=== PATIENT | female | born 1975 | race Caucasian/White ===

== ENCOUNTER 2021-02-15 15:51 | Outpatient (CLI) | payer OTHER | END 2021-02-15 15:52 | disposition home or self-care (01) | LOC: COV 15:51 | PROVIDERS: ATTEND Family Medicine | DX: U07.1 COVID-19 (principal) ==

== ENCOUNTER 2021-02-18 21:39 | Emergency (ER) | payer MEDICAID ==
--- NOTE | 2021-02-18 22:43 | XRAY Report ---
PROCEDURE: Chest 1 View X-Ray INDICATIONS: covid + resp symptoms TECHNIQUE: One view of the chest was acquired. COMPARISON: 06/21/2018 FINDINGS: Surgical changes and devices: None. Lungs and pleura: No pleural effusions or pneumothorax. Lungs are clear. Mediastinum: Mediastinal contours appear normal. Heart size is normal. Bones and chest wall: No suspicious bony lesions. Overlying soft tissues appear unremarkable. IMPRESSION: No acute cardiopulmonary disease process. Reviewed by: Cheryl Samuels MD, PhD on 02/18/2021 10:42 PM PDT Approved by: Cheryl Samuels MD, PhD on 02/18/2021 10:42 PM PDT Station ID: [id number]
--- NOTE | 2021-02-18 23:03 | ED Physician Documentation ---
PD HPI CHEST PAIN - Stated complaint Stated Complaint: C+ CHEST TIGHT - Chief complaint Chief Complaint: Resp - History obtained from History obtained from: Patient - History of Present Illness Timing - onset: How many days ago (4-5) Timing - details: Gradual onset, Waxing and waning Quality: Pain Location: Substernal Improved by: Rest Worsened by: Exertion Associated symptoms: Shortness of air, Cough Similar symptoms before: Diagnosis (COVID) Recently seen: Clinic - Additional information Additional information: c/o several days of cough, dyspnea, chest tightness. dyspnea worse when lying down, supine. she has had chills/sweats and Tmax 101.7. On Friday (4 days ago), she took a home test for COVID which resulted positive, and she then went to walk-in/urgent care clinic on and had COVID test which was positive result. She has not been COVID vaccinated. Review of Systems Constitutional: reports: Fever, Chills, Myalgias, Fatigue, Sweats Cardiac: reports: Chest pain / pressure. denies: Palpitations Respiratory: reports: Dyspnea, Cough. 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 - Present Medications Home Medications: Ambulatory Orders Medication Instructions Recorded Confirmed Benzonatate [Tessalon Perle] 100 - 200 mg PO TID PRN #30 capsule 06/21/18 Doxycycline Hyclate 100 mg PO BID #20 capsule 06/21/18 Benzonatate [Tessalon] 200 mg PO TID PRN #20 02/18/21 - Allergies Allergies/Adverse Reactions: Allergies Allergy/AdvReac Type Severity Reaction Status Date / Time erythromycin base Allergy Intermediate hives/chest Verified 02/18/21 21:56 [Erythromycin Base] pain Penicillins Allergy Mild Hives Verified 02/18/21 21:56 - Social History Does the pt smoke?: No Smoking Status: Never smoker Does the pt drink ETOH?: Yes Does the pt have substance abuse?: No - Immunizations Immunizations are current?: Yes Immunizations: No immun - POLST Patient has POLST: No PD ED PE NORMAL - Vitals Vital signs reviewed: Yes - General General: Alert and oriented X 3, No acute distress, Well developed/nourished - HEENT HEENT: Moist mucous membranes - Neck Neck: Supple, no meningeal sign - Cardiac Cardiac: RRR, No murmur - Respiratory Respiratory: No respiratory distress, Clear bilaterally Results - Vitals Vitals: Oxygen O2 Source Room air - Rads (name of study) chest xray Radiology: Prelim report reviewed, See rad report PD MEDICAL DECISION MAKING - ED course Complexity details: reviewed results, re-evaluated patient, considered differential, d/w patient ED course: COVID positive by outpatient test (performed 02/15), presents due to increasing dyspnea and cough. CXR is unremarkable at this time, vital signs are stable including room air pulse ox. she speaks in full sentences, no respiratory distress although frequent dry cough during H+P and hoarse voice. prescribed tessalon perles. Departure - Departure Disposition: 01 Home, Self Care Clinical Impression: COVID-19 Condition: Good Instructions: ED Viral Syndrome, COVID-19 [facility] Prescriptions: Benzonatate [Tessalon] 200 mg PO TID PRN #20 PRN Reason: Cough Discharge Date/Time: 02/18/21 23:43
[2021-02-18] MEDS ORDERED: BENZONATATE 100 MG CAPSULE PO STA (23:25)
[2021-02-18 23:33] VITALS: BP 134/78
== END 2021-02-18 23:43 | disposition home or self-care (01) ==
LOC: ED 21:39
DX: U07.1 COVID-19 (principal)
CPT/HCPCS: 71045; 99283; 99284; A9270

== ENCOUNTER 2021-02-20 09:41 | Emergency (ER) | payer MEDICAID ==
--- NOTE | 2021-02-20 11:04 | ED Physician Documentation ---
PD HPI URI - Stated complaint Stated Complaint: C+ CALLED TO COME IN - Chief complaint Chief Complaint: General - History obtained from History obtained from: Patient - History of Present Illness Timing - onset: How many days ago (7) Timing duration: Days (7) Timing details: Gradual onset, Still present Associated symptoms: Fever, Chills, Sore throat, Dry cough, Dyspnea Contributing factors: Sick contact, Unimmunized. No: Travel, COPD / asthma Similar symptoms before: Has not had sx before Recently seen: Clinic (02/15/21 with positive COVID test.), Emergency Dept (last evening in ER for dyspnea and cough. Rx Tessalon. Had COVID test positive from 02/15/21. Told to return today for MAB therapy if wished that treatment. She is still having cough/dyspnea as well.) Review of Systems Constitutional: reports: Fever, Chills, Myalgias, Fatigue Nose: reports: Congestion Throat: reports: Sore throat Cardiac: reports: Chest pain / pressure. denies: Palpitations, Pedal edema Respiratory: reports: Dyspnea, Cough, Wheezing Skin: denies: Rash, Lesions Neurologic: reports: Generalized weakness, Headache. 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 - Present Medications Home Medications: Ambulatory Orders Medication Instructions Recorded Confirmed Doxycycline Hyclate 100 mg PO BID #20 capsule 06/21/18 02/20/21 Benzonatate [Tessalon] 200 mg PO TID PRN #20 02/18/21 02/20/21 Albuterol Sulf [Ventolin Hfa 3 - 4 puffs INH Q4HR PRN #1 inhaler 02/20/21 Inhaler] dexAMETHasone [Decadron] 4 mg PO DAILY #5 tablet 02/20/21 - Allergies Allergies/Adverse Reactions: Allergies Allergy/AdvReac Type Severity Reaction Status Date / Time erythromycin base Allergy Intermediate hives/chest Verified 02/20/21 10:20 [Erythromycin Base] pain Penicillins Allergy Mild Hives Verified 02/20/21 10:20 - Social History Does the pt smoke?: No Smoking Status: Never smoker Does the pt drink ETOH?: Yes Does the pt have substance abuse?: No - Immunizations Immunizations are current?: Yes Immunizations: No immun - POLST Patient has POLST: No PD ED PE NORMAL - Vitals Vital signs reviewed: Yes - General General: Alert and oriented X 3, No acute distress (repetitive coughing with prolonged exp phase. ), Well developed/nourished - HEENT HEENT: Moist mucous membranes, Pharynx benign - Neck Neck: Supple, no meningeal sign, No adenopathy - Cardiac Cardiac: RRR, No murmur - Respiratory Respiratory: No: Clear bilaterally (no coarse sounds but has scattered exp wheezing and prolonged exp phase. ) - Abdomen Abdomen: Soft, Non tender - Derm Derm: Normal color, Warm and dry, No rash - Extremities Extremities: No edema, No calf tenderness / cord - Neuro Neuro: Alert and oriented X 3, No motor deficit, Normal speech Results - Vitals Vitals: Vital Signs - 24 hr 02/20/21 02/20/21 02/20/21 10:15 11:54 11:59 Temperature 36.9 C 37.2 C Heart Rate 80 74 84 Respiratory 22 18 14 Rate Blood Pressure 109/78 116/65 O2 Saturation 98 94 02/20/21 13:19 Temperature Heart Rate 87 Respiratory 18 Rate Blood Pressure 113/61 O2 Saturation 94 Oxygen O2 Source Room air PD MEDICAL DECISION MAKING - ED course Complexity details: re-evaluated patient (improved moderately with Albuterol MDI. with her history of asthma, now with COVID, could benefit from Albuterol and steroids. Got MAB therapy infusion here without problems. ), considered differential (coughing and some wheezing. Not improved with Tessalon. Returned for MAB therapy. I called Pharmacy and they will enter the order. ), d/w patient Departure - Departure Disposition: 01 Home, Self Care Clinical Impression: Pneumonia due to COVID-19 virus Condition: Stable Record reviewed to determine appropriate education?: Yes Prescriptions: Albuterol Sulf [Ventolin Hfa Inhaler] 3 - 4 puffs INH Q4HR PRN #1 inhaler PRN Reason: Shortness Of Air/Wheezing dexAMETHasone [Decadron] 4 mg PO DAILY #5 tablet Comments: Stay well-hydrated. Tylenol if needed for fevers and pains. Use the albuterol inhaler 3 to 4 puffs 4 times a day to help with breathing and less wheezing. Decadron steroid for inflammation of the airways daily for the next several days. Continue with the previous Tessalon prescription for cough. Your oxygenation level is good at this point. Return to the ER if worsening trouble breathing. You will still feel ill over the next week. Discharge Date/Time: 02/20/21 13:56
[2021-02-20] MEDS ORDERED: DEXAMETHASONE 10 MG/ML VIAL IVP STA (11:28)
[2021-02-20] MEDS ORDERED: ALBUTEROL 1 PUFF INH STA (11:28)
[2021-02-20] MEDS ORDERED: BENZONATATE 100 MG CAPSULE PO STA (11:28)
[2021-02-20] MEDS ORDERED: diphenhydrAMINE ELIXIR 25 MG/10 ML UDC PO STA (11:28)
[2021-02-20] MEDS ORDERED: CASIRIVIMAB/IMDEVIMAB 10 ML in SODIUM CHLORIDE 0.9% 50 ML IV STA (11:42)
[2021-02-20 13:19] VITALS: BP 113/61
== END 2021-02-20 13:56 | disposition home or self-care (01) ==
LOC: ED 09:41
DX: U07.1 COVID-19 (principal); J12.82 Pneumonia due to coronavirus disease 2019; J45.909 Unspecified asthma, uncomplicated; I10 Essential (primary) hypertension; Z79.899 Other long term (current) drug therapy; Z23 Encounter for immunization
CPT/HCPCS: 94640; 94664; 96374; 99283; 99284; A9270; J7040; M0243; Q0244

== ENCOUNTER 2021-02-24 14:39 | Inpatient (IN) | payer MEDICAID ==
[2021-02-24] MEDS ORDERED: DEXAMETHASONE 10 MG/ML VIAL IVP STA (15:17)
--- NOTE | 2021-02-24 15:19 | ED Physician Documentation ---
PD HPI DYSPNEA - Stated complaint Stated Complaint: SOA,COUGH,C+ - History obtained from History obtained from: Patient - Additional information Additional information: Became symptomatic on the third and had a home Covid test that was positive. This was for fevers, cough, body aches and fatigue. Had a clinic Covid test done on the fifth which was also positive. She has been seen a couple of times since, on the eighth a chest x-ray was clear and she had a Mab infusion on the . She is actually overall feeling better from a perspective of the fatigue and body aches, but has been much more short of breath today. She has a loose cough. She was not immunized for Covid. 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 - Present Medications Home Medications: Ambulatory Orders Medication Instructions Recorded Confirmed Benzonatate [Tessalon] 200 mg PO TID PRN #20 02/18/21 02/24/21 Albuterol Sulf [Ventolin Hfa 3 - 4 puffs INH Q4HR PRN #1 inhaler 02/20/21 02/24/21 Inhaler] dexAMETHasone [Decadron] 4 mg PO DAILY #5 tablet 02/20/21 02/24/21 guaiFENesin/DEXTROMETHORPHAN 10 ml PO Q6H 02/24/21 02/24/21 [Robitussin Dm] - Allergies Allergies/Adverse Reactions: Allergies Allergy/AdvReac Type Severity Reaction Status Date / Time erythromycin base Allergy Intermediate hives/chest Verified 02/24/21 15:26 [Erythromycin Base] pain Penicillins Allergy Mild Hives Verified 02/24/21 15:26 - Social History Does the pt smoke?: No Smoking Status: Never smoker Does the pt drink ETOH?: Yes Does the pt have substance abuse?: No - Immunizations Immunizations are current?: Yes Immunizations: No immun - POLST Patient has POLST: No PD ED PE NORMAL - Vitals Vital signs reviewed: Yes - General General: Alert and oriented X 3, No acute distress - HEENT HEENT: PERRL, EOMI - Neck Neck: Supple, no meningeal sign, No bony TTP - Cardiac Cardiac: RRR, No murmur - Respiratory Respiratory: Other (Rhonchi at the bases with slightly increased I:E ratio but no wheezes., Frequent cough.) - Abdomen Abdomen: Non tender - Back Back: No CVA TTP, No spinal TTP - Derm Derm: Normal color, Warm and dry - Extremities Extremities: No edema, No calf tenderness / cord - Neuro Neuro: Alert and oriented X 3, Normal speech Results - Vitals Vitals: Vital Signs - 24 hr 02/24/21 02/24/21 02/24/21 15:23 15:39 16:46 Temperature 36.0 C L 36.6 C Heart Rate 84 81 75 Respiratory 26 H 22 20 Rate Blood Pressure 150/97 H 149/87 H 150/93 H O2 Saturation 88 L 93 96 02/24/21 02/24/21 02/24/21 16:55 17:27 18:07 Temperature 36.9 C 36.9 C Heart Rate 75 74 80 Respiratory 20 20 20 Rate Blood Pressure 150/93 H 149/92 H 133/113 H O2 Saturation 95 97 94 Oxygen O2 Source Nasal cannula Oxygen Flow Rate 2 - Labs Labs: Laboratory Tests 02/24/21 02/24/21 02/24/21 15:30 15:30 15:30 WBC 13.7 H RBC 3.96 L Hgb 12.5 Hct 37.8 MCV 95.5 MCH 31.6 H MCHC 33.1 RDW 15.4 H Plt Count 376 MPV 9.4 Neut # (Auto) 12.7 H Lymph # (Auto) 0.6 L [place] # (Auto) 0.3 Eos # (Auto) 0.0 Baso # (Auto) 0.0 Absolute Nucleated RBC 0.00 Nucleated RBC % 0.0 D-Dimer 594.7 H Sodium 140 Potassium 3.9 Chloride 103 Carbon Dioxide 26 Anion Gap 11.0 BUN 14 Creatinine 0.7 Estimated GFR (MDRD) 91 Glucose 104 H Calcium 8.9 Phosphorus 2.0 L Magnesium 1.9 Total Bilirubin 0.6 AST 187 H ALT 228 H Alkaline Phosphatase 257 H Total Protein 7.3 Albumin 3.1 L Globulin 4.2 Albumin/Globulin Ratio 0.7 L Serum HCG, Qual 02/24/21 15:30 WBC RBC Hgb Hct MCV MCH MCHC RDW Plt Count MPV Neut # (Auto) Lymph # (Auto) [place] # (Auto) Eos # (Auto) Baso # (Auto) Absolute Nucleated RBC Nucleated RBC % D-Dimer Sodium Potassium Chloride Carbon Dioxide Anion Gap BUN Creatinine Estimated GFR (MDRD) Glucose Calcium Phosphorus Magnesium Total Bilirubin AST ALT Alkaline Phosphatase Total Protein Albumin Globulin Albumin/Globulin Ratio Serum HCG, Qual NEGATIVE PD MEDICAL DECISION MAKING - ED course ED course: 45-year-old woman who has developed Covid pneumonia and is now hypoxemic She was also cultured up and given Rocephin and Zithromax given the elevation in her white count which is not typical for Covid alone. Oxygen requirement was 3 to 4 L in the emergency department. Elevated D-dimer noted given Lovenox here. Departure - Departure Disposition: 66 [facility] DC/Xfer Clinical Impression: COVID-19, Pneumonia due to COVID-19 virus Condition: Serious Discharge Date/Time: 02/24/21 20:00
[2021-02-24 15:44] LABS: BASOPHILS % (AUTO) 0.2 %; HCT - HEMATOCRIT 37.8 % (37.0-47.0); HGB - HEMOGLOBIN 12.5 g/dL (12.0-16.0); LYMPHOCYTES # (AUTO) 0.6 10^3/uL (1.5-3.5); MEAN CORPUSCULAR HEMOGLOBIN 31.6 pg (27.0-31.0); MEAN CORPUSCULAR HGB CONC 33.1 g/dL (32.0-36.0); MEAN CORPUSCULAR VOLUME 95.5 fL (81.0-99.0); MEAN PLATELET VOLUME 9.4 fL (7.9-10.8); MONOCYTES # (AUTO) 0.3 10^3/uL (0.0-1.0); MONOCYTES % (AUTO) 2.4 %; NEUTROPHILS # (AUTO) 12.7 10^3/uL (1.5-6.6); NEUTROPHILS % (AUTO) 92.8 %; PLT - PLATELET COUNT 376 10^3/uL (130-450); RED BLOOD COUNT 3.96 10^6/uL (4.20-5.40); RED CELL DISTRIBUTION WIDTH 15.4 % (12.0-15.0); WHITE BLOOD COUNT 13.7 x10^3/uL (4.8-10.8)
[2021-02-24] MEDS ORDERED: DOXYCYCLINE INJ 100 MG in SODIUM CHLORIDE 0.9% MINIBAG 100 ML IV STA (15:48)
[2021-02-24 16:02] LABS: ALBUMIN 3.1 g/dL (3.2-5.5); ALBUMIN/GLOBULIN RATIO 0.7 (1.0-2.2); BILIRUBIN,TOTAL 0.6 mg/dL (0.2-1.0); CALCIUM 8.9 mg/dL (8.5-10.3); CREATININE 0.7 mg/dL (0.4-1.0); MAGNESIUM 1.9 mg/dL (1.7-2.8); POTASSIUM 3.9 mmol/L (3.5-5.0); TOTAL PROTEIN 7.3 g/dL (6.7-8.2)
[2021-02-24 16:06] LABS: HCG,QUALITATIVE BLOOD NEGATIVE
--- NOTE | 2021-02-24 16:08 | XRAY Report ---
PROCEDURE: Chest 1 View X-Ray INDICATIONS: dysnea, known covid TECHNIQUE: One view of the chest was acquired. COMPARISON: 02/18/2021 FINDINGS: Surgical changes and devices: None. Lungs and pleura: There are now patchy bilateral pulmonary infiltrates. Pleural spaces clear. Mediastinum: Mediastinal contours appear normal. Heart size is normal. Bones and chest wall: No suspicious bony lesions. Overlying soft tissues appear unremarkable. IMPRESSION: Patchy bilateral pulmonary infiltrates consistent with viral or community-acquired pneumonia Reviewed by: Felix Stephens MD on 02/24/2021 3:06 PM AKDT Approved by: Felix Stephens MD on 02/24/2021 3:06 PM AKDT Station ID: [id number]
[2021-02-24] MEDS: cefTRIAXone 2 GM in SODIUM CHLORIDE 0.9% MINIBAG 100 ML IV STA (16:21)
[2021-02-24] MEDS ORDERED: ENOXAPARIN 80 MG/0.8 ML SYRINGE SUBQ STA (16:54)
[2021-02-24] MEDS ORDERED: ACETAMINOPHEN 325 MG TABLET PO PRN (19:07)
[2021-02-24] MEDS ORDERED: ONDANSETRON 4 MG/2 ML VIAL IVP PRN (19:07)
--- NOTE | 2021-02-24 19:13 | HISTORY & PHYSICAL EXAMINATION ---
Chief Complaint - Chief Complaint Chief Complaint: dyspnea, cough, COVID+ History of Present Illness - Admitted From Admitted From:: [facility] ED - History Obtained From Records Reviewed: yes History obtained from: patient - History of Present Illness HPI Comment/Other: Patient is a 45-year-old female with no significant medical history who presents to the ED with dyspnea, cough and hypoxia. She has been having viral symptoms like headache, overall feeling sick and a cough since February 13, 2021. She had a home Covid test which was positive. She has been to the emergency department 3 times since onset of her symptoms. On 20 February she received a monoclonal antibody infusion. She finally came in today because her home pulse oximetry has been in the low to mid 80s. In the ED she was noted to be 88% on room air. She required 3 L of oxygen via nasal cannula while at rest and 4 L with activity to keep her oxygen saturation in the 90s. She was also noted to have a WBC of 13.7 and a chest x-ray was indicated of viral and or atypical pneumonia. As a result she was presented for admission for further treatment. She denies chest pain, abdominal pain, nausea, vomiting, fever or chills. 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 Social History Notes: She lives at home. She does not smoke tobacco products or use recreational substance. She rarely consumes alcohol - POLST Patient has POLST: No POLST Status: Full Code Meds/Allgy - Home Medications Home Medications: Ambulatory Orders Medication Instructions Recorded Confirmed Benzonatate [Tessalon] 200 mg PO TID PRN #20 02/18/21 02/24/21 Albuterol Sulf [Ventolin Hfa 3 - 4 puffs INH Q4HR PRN #1 inhaler 02/20/21 02/24/21 Inhaler] dexAMETHasone [Decadron] 4 mg PO DAILY #5 tablet 02/20/21 02/24/21 guaiFENesin/DEXTROMETHORPHAN 10 ml PO Q6H 02/24/21 02/24/21 [Robitussin Dm] - Allergies Allergies/Adverse Reactions: Allergies Allergy/AdvReac Type Severity Reaction Status Date / Time erythromycin base Allergy Intermediate hives/chest Verified 02/24/21 15:26 [Erythromycin Base] pain Penicillins Allergy Mild Hives Verified 02/24/21 15:26 Review of Systems - Constitutional Constitutional: reports: Malaise. denies: Fever, Chills - Eyes Eyes: denies: Pain - Ears, Nose & Throat Ears, Nose & Throat: denies: Ear pain - Cardiovascular Cariovascular: denies: Chest pain, Edema, Lightheadedness, Syncope - Respiratory Respiratory: reports: Cough, SOB at rest, SOB with exertion. denies: Sputum production - Gastrointestinal Gastrointestinal: reports: Diarrhea. denies: Abdominal pain, Abdominal distention, Nausea, Vomiting - Genitourinary Genitourinary: denies: Dysuria, Frequency, Urgency, Hematuria - Musculoskeletal Musculoskeletal: denies: Muscle pain, Back pain, Muscle aches, Stiffness - Integumentary Integumentary: denies: Rash, Pruritis, Lesions, Dryness - Neurological Neurological: denies: Focal weakness, Headache - Psychiatric Psychiatric: denies: Depression, Anxiety - Endocrine Endocrine: denies: Polyuria, Polydypsia - Hematologic/Lymphatic Hematologic/Lymphatic: denies: Anemia, Bruising, Petechiae Prior Level of Functionality: She is independent of activities of daily living. Exam - Vital Signs Vital Signs: Vital Signs x48h Temp Pulse Resp BP Pulse Ox 02/24/21 18:07 80 20 133/113 H 94 02/24/21 17:27 36.9 C 74 20 149/92 H 97 02/24/21 16:55 36.9 C 75 20 150/93 H 95 02/24/21 16:46 75 20 150/93 H 96 02/24/21 15:39 36.6 C 81 22 149/87 H 93 02/24/21 15:23 36.0 C L 84 26 H 150/97 H 88 L - Physical Exam General Appearance: positive: Alert, Mild distress Eyes Bilateral: positive: PERRL, EOMI ENT: positive: No signs of dehydration Neck: positive: No JVD, Trachea midline Respiratory: positive: Other (bilateral crackles) Cardiovascular: positive: Regular rate & rhythm, No murmur Abdomen: positive: Non-tender, Nml bowel sounds, No distention. negative: Guarding, Rebound Back: positive: Nml inspection Skin: positive: No rash, Warm, Dry Extremities: positive: Non-tender, Full ROM, Nml appearance, No pedal edema Neurologic/Psychiatric: positive: Oriented x3, Mood/affect nml Conclusion/Plan - Problem List (1) COVID-19 Conclusion/Plan: On 2L supplemental oxygen via nasal cannula with oxygen saturation greater than 92%. We will start remdesivir in the morning. Decadron 6 mg IV daily. Albuterol as needed. Due to the possibility of atypical pneumonia in addition to COVID-19 Doxycycline 100 mg p.o. twice daily x4 days. Rocephin 1 g IV daily. (2) Acute respiratory failure with hypoxemia Conclusion/Plan: On 2L supplemental oxygen via nasal cannula with oxygen saturation greater than 92%. We will start remdesivir in the morning. Decadron 6 mg IV daily. Albuterol as needed. Due to the possibility of atypical pneumonia in addition to COVID-19 Doxycycline 100 mg p.o. twice daily x4 days. Rocephin 1 g IV daily. (3) Leukocytosis Conclusion/Plan: WBC was 13.7. Due to possibility of atypical pneumonia in addition to COVID-19. Patient was started on doxycycline 100 mg IV twice daily and Rocephin 1 g IV daily - Lab Results Fish Bones: 02/24/21 15:30 02/24/21 15:30 Core Measures - Anticipated LOS I expect patient to be DC'd or transferred within 96 hours.: Yes - DVT/VTE - Prophylaxis VTE/DVT Device ordered at admit?: Yes VTE/DVT Prophylaxis med ordered at admit?: Yes
[2021-02-24] MEDS ORDERED: ALBUTEROL 1 PUFF INH PRN (21:17)
[2021-02-24] MEDS: SODIUM CHLORIDE FLUSH 0.9% 10 ML SYRINGE IVP SCH (22:32)
[2021-02-24] MEDS: guaiFENesin/CODEINE 5 ML UDC PO PRN (22:39)
[2021-02-25 06:04] LABS: BASOPHILS % (AUTO) 0.1 %; HCT - HEMATOCRIT 37.8 % (37.0-47.0); HGB - HEMOGLOBIN 12.1 g/dL (12.0-16.0); LYMPHOCYTES # (AUTO) 0.6 10^3/uL (1.5-3.5); LYMPHOCYTES % (AUTO) 6.8 %; MEAN CORPUSCULAR HEMOGLOBIN 30.7 pg (27.0-31.0); MEAN CORPUSCULAR VOLUME 95.9 fL (81.0-99.0); MEAN PLATELET VOLUME 11.1 fL (7.9-10.8); MONOCYTES # (AUTO) 0.2 10^3/uL (0.0-1.0); MONOCYTES % (AUTO) 2.9 %; NEUTROPHILS # (AUTO) 7.2 10^3/uL (1.5-6.6); NEUTROPHILS % (AUTO) 89.5 %; PLT - PLATELET COUNT 330 10^3/uL (130-450); RED BLOOD COUNT 3.94 10^6/uL (4.20-5.40); RED CELL DISTRIBUTION WIDTH 15.1 % (12.0-15.0)
[2021-02-25 06:20] LABS: CALCIUM 8.8 mg/dL (8.5-10.3); CREATININE 0.7 mg/dL (0.4-1.0); POTASSIUM 4.3 mmol/L (3.5-5.0)
[2021-02-25] MEDS ORDERED: ENOXAPARIN 40 MG/0.4 ML SYRINGE SUBQ SCH (09:00)
[2021-02-25] MEDS ORDERED: AZITHROMYCIN INJ 500 MG in SODIUM CHLORIDE 0.9% 250 ML IV SCH (09:00)
[2021-02-25] MEDS: DOXYCYCLINE INJ 100 MG in SODIUM CHLORIDE 0.9% MINIBAG 100 ML IV SCH ×2 (09:07→20:23)
[2021-02-25] MEDS: guaiFENesin/CODEINE 5 ML UDC PO PRN ×2 (09:08→13:26)
[2021-02-25] MEDS: DEXAMETHASONE 4 MG/ML VIAL IVP SCH (09:08)
[2021-02-25] MEDS: SODIUM CHLORIDE FLUSH 0.9% 10 ML SYRINGE IVP SCH ×3 (09:09→23:49)
[2021-02-25] MEDS ORDERED: REMDESIVIR 100MG VIAL 200 MG in SODIUM CHLORIDE 0.9% 250 ML IV ONE (10:00)
[2021-02-25] MEDS: guaiFENesin 600 MG TABLET PO SCH ×2 (13:26→20:24)
[2021-02-25] MEDS: guaiFENesin/DEXTROMETHORPHAN 10 ML UDC PO SCH ×3 (13:28→23:49)
--- NOTE | 2021-02-25 17:05 | PHARMACY PROGRESS NOTE ---
- Best Possible Medication History Admit Date and Time: 02/24/211906 Processed by: Nursing Medication History completed: Yes As the person ultimately responsible for medication therapy, providers are able to order a medication from an existing home medication list in [facility] via the "Reconcile Routine" prior to Confirmation of that medication by call center support representative. Such practice is discouraged except when the physician, in their clinical judgment, deems that a medical need exists for a medication without regard to previous use.
[2021-02-25] MEDS: cefTRIAXone 2 GM in SODIUM CHLORIDE 0.9% MINIBAG 100 ML IV STA (17:15)
[2021-02-25] MEDS: cefTRIAXone 1 GM in SODIUM CHLORIDE 0.9% MINIBAG 100 ML IV SCH (17:19)
--- NOTE | 2021-02-25 19:27 | PROVIDER PROGRESS NOTE ---
Assessment/Plan - Problem List (1) COVID-19 Assessment/Plan: On 4 L of oxygen via oxygen mask with oxygen saturation around 94%. On remdesivir day 1 of 5. Decadron 6 mg IV daily. Albuterol as needed. Due to the possibility of atypical pneumonia in addition to COVID-19 Doxycycline 100 mg p.o. twice daily x4 days. Rocephin 1 g IV daily. (2) Acute respiratory failure with hypoxemia Assessment/Plan: On 4 L of oxygen via oxygen mask with oxygen saturation around 94%. On remdesivir day 1 of 5. Decadron 6 mg IV daily. Albuterol as needed. Due to the possibility of atypical pneumonia in addition to COVID-19 Doxycycline 100 mg p.o. twice daily x4 days. Rocephin 1 g IV daily. (3) Leukocytosis Assessment/Plan: Improved/resolved. We will continue Rocephin and doxycycline for now. - Current Meds Current Meds: Current Medications Generic Name Dose Route Start Last Admin Trade Name Freq PRN Reason Stop Dose Admin Dexamethasone 6 mg 02/25/21 09:00 02/25/21 09:08 Dexamethasone 4 Mg/Ml Vial IVP 6 mg DAILY SIMRAN Administration Guaifenesin 600 mg 02/25/21 12:00 02/25/21 13:26 Guaifenesin 600 Mg Tablet PO 600 mg BID SIMRAN Administration Guaifenesin 10 ml 02/25/21 12:00 02/25/21 17:24 Guaifenesin/Dextromethorphan 10 Ml Udc PO 10 ml Q6H SIMRAN Administration Guaifenesin/Codeine Phosphate 5 ml 02/24/21 21:17 02/25/21 13:26 Guaifenesin/Codeine 5 Ml Udc PO 5 ml Q6HR PRN Administration Cough Ceftriaxone Sodium 1 gm/ 100 mls @ 200 mls/hr 02/25/21 16:00 02/25/21 18:05 Sodium Chloride IV Infused DAILY@1600 SIMRAN Infusion Doxycycline Hyclate 100 mg/ 100 mls @ 100 mls/hr 02/25/21 09:00 02/25/21 10:20 Sodium Chloride IV 02/28/21 21:59 Infused BID SIMRAN Infusion Sodium Chloride 10 ml 02/25/21 01:00 02/25/21 17:15 Sodium Chloride Flush 0.9% 10 Ml Syringe IVP 10 ml 0100,0900,1700 SIMRAN Administration - Lab Result Fish Bone Diagrams: 02/25/21 04:37 02/25/21 04:37 - Additional Planning My Orders: My Active Orders 02/24/21 19:07 Activity Orders [RC] Q2HR IO [RC] IOSHIFT Initiate Bowel Care Protocol [RC] .protocol Initiate Line Care Protocol [RC] QSHIFT Initiate Personal Care Protoco [RC] .protocol Telemetry- [RC] Q4HR Vital Signs [RC] Q4H Acetaminophen [Tylenol] 650 mg PO Q4HR PRN Ondansetron Inj [Zofran Inj] 4 mg IVP Q6HR PRN Sodium Chloride Flush 0.9% [Normal Saline Flush 0.9%] 10 ml IVP PRN PRN Code Status [OTHERS] Routine Condition of Patient [OTHERS] Routine DVT Prophylaxis [OTHERS] Routine 02/24/21 19:11 SCDs [RC] QSHIFT 02/24/21 21:17 guaiFENesin/CODEINE [Robitussin AC] 5 ml PO Q6HR PRN 02/24/21 21:18 Nebulizer/MDI Tx. [RC] QID 02/25/21 01:00 Sodium Chloride Flush 0.9% [Normal Saline Flush 0.9%] 10 ml IVP 0100,0900,1700 02/25/21 09:00 Doxycycline Inj [Vibramycin Inj] 100 mg Sodium Chloride 0.9% Minibag [Normal Saline 0.9% Minibag] 100 ml IV BID dexAMETHasone [Decadron] 6 mg IVP DAILY 02/25/21 16:00 cefTRIAXone [Rocephin] 1 gm Sodium Chloride 0.9% Minibag [Normal Saline 0.9% Minibag] 100 ml IV DAILY@1600 02/26/21 05:00 BMP - BASIC METABOLIC PANEL [CHEM] DAILYLAB CBC - COMP BLD CT W/AUTO DIFF [HEME] DAILYLAB 02/27/21 05:00 BMP - BASIC METABOLIC PANEL [CHEM] DAILYLAB CBC - COMP BLD CT W/AUTO DIFF [HEME] DAILYLAB 02/28/21 05:00 BMP - BASIC METABOLIC PANEL [CHEM] DAILYLAB CBC - COMP BLD CT W/AUTO DIFF [HEME] DAILYLAB 03/01/21 05:00 BMP - BASIC METABOLIC PANEL [CHEM] DAILYLAB CBC - COMP BLD CT W/AUTO DIFF [HEME] DAILYLAB Subjective - Subjective Patient Reports: Other (Patient reports breathing better today than the previous day. She has a persistent cough. She denies any other complaints.) Objective Vital Signs: Vital Signs - 24 hr 02/24/21 02/24/21 02/24/21 20:00 20:15 20:31 Temperature 36.9 C Heart Rate 82 Heart Rate [ 75 Monitoring electrodes] Respiratory 18 25 H Rate Blood Pressure 184/90 H Blood Pressure 158/94 H [Right Brachial artery] O2 Saturation 91 L 95 02/24/21 02/24/21 02/25/21 22:00 22:38 00:00 Temperature Heart Rate Heart Rate [ 86 66 Monitoring electrodes] Respiratory 25 H 20 24 Rate Blood Pressure Blood Pressure 145/85 H 126/77 [Right Brachial artery] O2 Saturation 95 93 94 02/25/21 02/25/21 02/25/21 03:00 03:35 03:38 Temperature 36.7 C Heart Rate 87 Heart Rate [ 66 Monitoring electrodes] Respiratory 27 H 30 H 16 Rate Blood Pressure Blood Pressure 124/84 H [Right Brachial artery] O2 Saturation 87 L 96 02/25/21 02/25/21 02/25/21 04:00 05:00 08:47 Temperature 36.7 C Heart Rate Heart Rate [ 80 90 Monitoring electrodes] Respiratory 27 H 18 18 Rate Blood Pressure Blood Pressure 134/84 H 140/93 H [Right Brachial artery] O2 Saturation 97 95 93 02/25/21 02/25/21 02/25/21 08:58 12:25 16:00 Temperature 36.4 C L 37 C Heart Rate 94 Heart Rate [ 88 78 Monitoring electrodes] Respiratory 18 20 30 H Rate Blood Pressure Blood Pressure 133/83 H 152/96 H [Right Brachial artery] O2 Saturation 95 96 Oxygen O2 Source Oxymask Oxygen Flow Rate 2 I&O (Last 24 Hrs): Intake and Output Totals x24h 02/23/21 02/24/21 02/25/21 23:59 23:59 23:59 Intake Total 800 1730 Output Total 0 Balance 800 1730 General: Alert, Oriented x3, Mild distress HEENT: PERRLA, EOMI Neck: Supple, No JVD Neuro: Alert, Non Focal, Oriented Times 3 Cardiovascular: Regular rate Respiratory: Chest non-tender, Other (crackles bilaterally) Extremities: No clubbing, No edema Skin: No rashes, No breakdown, No significant lesion - Results Results: Laboratory Results WBC 8.0 x10^3/uL (4.8-10.8) 02/25/21 04:37 RBC 3.94 10^6/uL (4.20-5.40) L 02/25/21 04:37 Hgb 12.1 g/dL (12.0-16.0) 02/25/21 04:37 Hct 37.8 % (37.0-47.0) 02/25/21 04:37 MCV 95.9 fL (81.0-99.0) 02/25/21 04:37 MCH 30.7 pg (27.0-31.0) 02/25/21 04:37 MCHC 32.0 g/dL (32.0-36.0) 02/25/21 04:37 RDW 15.1 % (12.0-15.0) H 02/25/21 04:37 Plt Count 330 10^3/uL (130-450) 02/25/21 04:37 MPV 11.1 fL (7.9-10.8) H 02/25/21 04:37 Neut # (Auto) 7.2 10^3/uL (1.5-6.6) H 02/25/21 04:37 Lymph # (Auto) 0.6 10^3/uL (1.5-3.5) L 02/25/21 04:37 [place] # (Auto) 0.2 10^3/uL (0.0-1.0) 02/25/21 04:37 Eos # (Auto) 0.0 10^3/uL (0.0-0.7) 02/25/21 04:37 Baso # (Auto) 0.0 10^3/uL (0.0-0.1) 02/25/21 04:37 Absolute Nucleated RBC 0.00 x10^3/uL 02/25/21 04:37 Nucleated RBC % 0.0 /100WBC 02/25/21 04:37 D-Dimer 594.7 ng/mL (200.0-255.0) H 02/24/21 15:30 Sodium 136 mmol/L (135-145) 02/25/21 04:37 Potassium 4.3 mmol/L (3.5-5.0) 02/25/21 04:37 Chloride 101 mmol/L (101-111) 02/25/21 04:37 Carbon Dioxide 22 mmol/L (21-32) 02/25/21 04:37 Anion Gap 13.0 (6-13) 02/25/21 04:37 BUN 19 mg/dL (6-20) 02/25/21 04:37 Creatinine 0.7 mg/dL (0.4-1.0) 02/25/21 04:37 Estimated GFR (MDRD) 91 (>89) 02/25/21 04:37 Glucose 131 mg/dL (70-100) H 02/25/21 04:37 Calcium 8.8 mg/dL (8.5-10.3) 02/25/21 04:37 Phosphorus 2.0 mg/dL (2.5-4.6) L 02/24/21 15:30 Magnesium 1.9 mg/dL (1.7-2.8) 02/24/21 15:30 Total Bilirubin 0.6 mg/dL (0.2-1.0) 02/24/21 15:30 AST 187 IU/L (10-42) H 02/24/21 15:30 ALT 228 IU/L (10-60) H 02/24/21 15:30 Alkaline Phosphatase 257 IU/L (42-121) H 02/24/21 15:30 Total Protein 7.3 g/dL (6.7-8.2) 02/24/21 15:30 Albumin 3.1 g/dL (3.2-5.5) L 02/24/21 15:30 Globulin 4.2 g/dL (2.1-4.2) 02/24/21 15:30 Albumin/Globulin Ratio 0.7 (1.0-2.2) L 02/24/21 15:30 Serum HCG, Qual NEGATIVE 02/24/21 15:30 Nasal Screen MRSA (PCR) NEGATIVE (NEGATIVE) 02/24/21 20:30 ABX Reporting Has patient been on IV antibiotics over the past 48 hours?: Yes
[2021-02-25] MEDS: ENOXAPARIN 80 MG/0.8 ML SYRINGE SUBQ SCH (20:24)
[2021-02-25] MEDS: SODIUM CHLORIDE FLUSH 0.9% 10 ML SYRINGE IVP PRN (20:29)
[2021-02-25] MEDS: ALBUTEROL 1 PUFF INH PRN ×2 (20:36→23:53)
--- NOTE | 2021-02-25 23:25 | Ultrasound Report ---
PROCEDURE: Duplex Ext Veins Bilateral INDICATIONS: Jovan Thomas MD TECHNIQUE: Real-time imaging, as well as color and pulse Doppler interrogation, were performed of the deep veins of both legs from the inguinal ligament to the popliteal fossa. COMPARISON: None FINDINGS: The deep veins are normally compressible, and free of intraluminal thrombus. Color and pu lse Doppler demonstrate normal phasic intravascular flow. There is normal augmentation response to d istal compression maneuver. IMPRESSION: Unremarkable venous duplex study in the bilateral lower extremity. No evidence of deep venous thrombo sis Reviewed by: Felix Stephens MD on 02/25/2021 10:24 PM NATALIA Approved by: Felix Stephens MD on 02/25/2021 10:24 PM AKLAM Station ID: [id number]
[2021-02-26] MEDS: ALBUTEROL 1 PUFF INH PRN (04:51)
[2021-02-26] MEDS: guaiFENesin/DEXTROMETHORPHAN 10 ML UDC PO SCH ×4 (05:29→23:07)
[2021-02-26 05:43] LABS: HCT - HEMATOCRIT 35.8 % (37.0-47.0); HGB - HEMOGLOBIN 11.8 g/dL (12.0-16.0); LYMPHOCYTES # (AUTO) 1.2 10^3/uL (1.5-3.5); LYMPHOCYTES % (AUTO) 14.8 %; MEAN CORPUSCULAR HEMOGLOBIN 31.6 pg (27.0-31.0); MEAN CORPUSCULAR VOLUME 95.7 fL (81.0-99.0); MEAN PLATELET VOLUME 9.6 fL (7.9-10.8); MONOCYTES # (AUTO) 0.2 10^3/uL (0.0-1.0); MONOCYTES % (AUTO) 1.9 %; NEUTROPHILS # (AUTO) 6.8 10^3/uL (1.5-6.6); NEUTROPHILS % (AUTO) 82.2 %; PLT - PLATELET COUNT 408 10^3/uL (130-450); RED BLOOD COUNT 3.74 10^6/uL (4.20-5.40); RED CELL DISTRIBUTION WIDTH 15.2 % (12.0-15.0); WHITE BLOOD COUNT 8.2 x10^3/uL (4.8-10.8)
[2021-02-26 05:51] LABS: CALCIUM 8.8 mg/dL (8.5-10.3); CREATININE 0.7 mg/dL (0.4-1.0); POTASSIUM 4.1 mmol/L (3.5-5.0)
[2021-02-26] MEDS: DOXYCYCLINE INJ 100 MG in SODIUM CHLORIDE 0.9% MINIBAG 100 ML IV SCH (10:14)
[2021-02-26] MEDS: REMDESIVIR 100MG VIAL 100 MG in SODIUM CHLORIDE 0.9% 100ML 100 ML IV SCH (10:15)
[2021-02-26] MEDS: DEXAMETHASONE 4 MG/ML VIAL IVP SCH (10:15)
[2021-02-26] MEDS: ENOXAPARIN 80 MG/0.8 ML SYRINGE SUBQ SCH ×2 (10:16→20:33)
[2021-02-26] MEDS: guaiFENesin 600 MG TABLET PO SCH ×2 (10:16→20:33)
[2021-02-26] MEDS: SODIUM CHLORIDE FLUSH 0.9% 10 ML SYRINGE IVP SCH ×2 (10:37→18:40)
[2021-02-26] MEDS: cefTRIAXone 1 GM in SODIUM CHLORIDE 0.9% MINIBAG 100 ML IV SCH (16:20)
--- NOTE | 2021-02-26 19:38 | PROVIDER PROGRESS NOTE ---
Assessment/Plan - Problem List (1) COVID-19 Assessment/Plan: On 6 L of oxygen via oxygen mask with oxygen saturation around 93%. This reflects a slight increase in oxygen requirement. She was on 4 L the prev ious day On remdesivir day 2 of 5. Decadron 6 mg IV daily. Albuterol as needed. Due to the possibility of atypical pneumonia in addition to COVID-19 Doxycycline 100 mg p.o. twice daily x4 days. Rocephin 1 g IV daily. (2) Acute respiratory failure with hypoxemia Assessment/Plan: On 6 L of oxygen via oxygen mask with oxygen saturation around 93%. This reflects a slight increase in oxygen requirement. She was on 4 L the previous day On remdesivir day 2 of 5. Decadron 6 mg IV daily. Albuterol as needed. Due to the possibility of atypical pneumonia in addition to COVID-19 Doxycycline 100 mg p.o. twice daily x4 days. Rocephin 1 g IV daily. (3) Leukocytosis Assessment/Plan: Improved/resolved. We will continue Rocephin and doxycycline for now. - Current Meds Current Meds: Current Medications Generic Name Dose Route Start Last Admin Trade Name Freq PRN Reason Stop Dose Admin Albuterol 3 puffs 02/25/21 11:41 02/26/21 04:51 Albuterol 1 Puff INH 3 puffs Q4HR PRN Administration Shortness of Air/Wheezing Dexamethasone 6 mg 02/25/21 09:00 02/26/21 10:15 Dexamethasone 4 Mg/Ml Vial IVP 6 mg DAILY SIMRAN Administration Enoxaparin Sodium 80 mg 02/25/21 21:00 02/26/21 10:16 Enoxaparin 80 Mg/0.8 Ml Syringe SUBQ 80 mg BID SIMRAN Administration Guaifenesin 600 mg 02/25/21 12:00 02/26/21 10:16 Guaifenesin 600 Mg Tablet PO 600 mg BID SIMRAN Administration Guaifenesin 10 ml 02/25/21 12:00 02/26/21 18:38 Guaifenesin/Dextromethorphan 10 Ml Udc PO 10 ml Q6H SIMRAN Administration Guaifenesin/Codeine Phosphate 5 ml 02/24/21 21:17 02/25/21 13:26 Guaifenesin/Codeine 5 Ml Udc PO 5 ml Q6HR PRN Administration Cough Ceftriaxone Sodium 1 gm/ 100 mls @ 200 mls/hr 02/25/21 16:00 02/26/21 16:56 Sodium Chloride IV Infused DAILY@1600 SIMRAN Infusion Remdesivir 100 mg/ Sodium 100 mls @ 200 mls/hr 02/26/21 09:00 02/26/21 10:50 Chloride IV 03/01/21 09:29 Infused DAILY SIMRAN Infusion Sodium Chloride 10 ml 02/24/21 19:07 02/25/21 20:29 Sodium Chloride Flush 0.9% 10 Ml Syringe IVP 10 ml PRN PRN Administration NEEDED PER PROVIDER ORDERS Sodium Chloride 10 ml 02/25/21 01:00 02/26/21 18:40 Sodium Chloride Flush 0.9% 10 Ml Syringe IVP 10 ml 0100,0900,1700 SIMRAN Administration - Lab Result Fish Bone Diagrams: 02/26/21 05:03 02/26/21 05:03 - Additional Planning My Orders: My Active Orders 02/27/21 05:00 BMP - BASIC METABOLIC PANEL [CHEM] DAILYLAB CBC - COMP BLD CT W/AUTO DIFF [HEME] DAILYLAB 02/28/21 05:00 BMP - BASIC METABOLIC PANEL [CHEM] DAILYLAB CBC - COMP BLD CT W/AUTO DIFF [HEME] DAILYLAB 03/01/21 05:00 BMP - BASIC METABOLIC PANEL [CHEM] DAILYLAB CBC - COMP BLD CT W/AUTO DIFF [HEME] DAILYLAB Subjective - Subjective Patient Reports: Other (Patient's breathing appears slightly more labored today. Crackles on auscultation of lungs also more prominent. She also had an increase in oxygen requirement from 4 L to 6 L of oxygen. Cough persist) Objective Vital Signs: Vital Signs - 24 hr 02/25/21 02/25/21 02/25/21 20:00 20:33 22:00 Temperature 36.9 C Heart Rate [ 74 Monitoring electrodes] Respiratory 19 26 H Rate Blood Pressure 130/93 H [Right Brachial artery] O2 Saturation 92 94 02/25/21 02/26/21 02/26/21 23:35 04:37 04:56 Temperature 36.9 C 36.9 C Heart Rate [ 75 79 Monitoring electrodes] Respiratory 24 23 Rate Blood Pressure 142/93 H 109/66 [Right Brachial artery] O2 Saturation 96 91 L 02/26/21 02/26/2121 05:10 10:00 15:40 Temperature 37.1 C Heart Rate [ 89 91 Monitoring electrodes] Respiratory 18 22 95 H Rate Blood Pressure 121/80 127/81 H [Right Brachial artery] O2 Saturation 93 92 4 L Oxygen O2 Source Nasal cannula Oxygen Flow Rate 2 I&O (Last 24 Hrs): Intake and Output Totals x24h 02/24/21 02/25/21 02/26/21 23:59 23:59 23:59 Intake Total 800 1830 2000 Output Total 0 Balance 800 1830 1999 General: Alert, Oriented x3, Mild distress HEENT: PERRLA, EOMI Neck: Supple, No JVD Neuro: Alert, Non Focal, Oriented Times 3 Cardiovascular: Regular rate, No murmurs Respiratory: Chest non-tender, Other (crackles bilaterally) Abdomen: Normal bowel sounds, Soft, No tenderness, No masses Extremities: No clubbing, No edema Skin: No rashes, No breakdown - Results Results: Laboratory Results WBC 8.2 x10^3/uL (4.8-10.8) 02/26/21 05:03 RBC 3.74 10^6/uL (4.20-5.40) L 02/26/21 05:03 Hgb 11.8 g/dL (12.0-16.0) L 02/26/21 05:03 Hct 35.8 % (37.0-47.0) L 02/26/21 05:03 MCV 95.7 fL (81.0-99.0) 02/26/21 05:03 MCH 31.6 pg (27.0-31.0) H 02/26/21 05:03 MCHC 33.0 g/dL (32.0-36.0) 02/26/21 05:03 RDW 15.2 % (12.0-15.0) H 02/26/21 05:03 Plt Count 408 10^3/uL (130-450) 02/26/21 05:03 MPV 9.6 fL (7.9-10.8) 02/26/21 05:03 Neut # (Auto) 6.8 10^3/uL (1.5-6.6) H 02/26/21 05:03 Lymph # (Auto) 1.2 10^3/uL (1.5-3.5) L 02/26/21 05:03 [place] # (Auto) 0.2 10^3/uL (0.0-1.0) 02/26/21 05:03 Eos # (Auto) 0.0 10^3/uL (0.0-0.7) 02/26/21 05:03 Baso # (Auto) 0.0 10^3/uL (0.0-0.1) 02/26/21 05:03 Absolute Nucleated RBC 0.00 x10^3/uL 02/26/21 05:03 Nucleated RBC % 0.0 /100WBC 02/26/21 05:03 D-Dimer 594.7 ng/mL (200.0-255.0) H 02/24/21 15:30 Sodium 139 mmol/L (135-145) 02/26/21 05:03 Potassium 4.1 mmol/L (3.5-5.0) 02/26/21 05:03 Chloride 104 mmol/L (101-111) 02/26/21 05:03 Carbon Dioxide 23 mmol/L (21-32) 02/26/21 05:03 Anion Gap 12.0 (6-13) 02/26/21 05:03 BUN 21 mg/dL (6-20) H 02/26/21 05:03 Creatinine 0.7 mg/dL (0.4-1.0) 02/26/21 05:03 Estimated GFR (MDRD) 91 (>89) 02/26/21 05:03 Glucose 83 mg/dL (70-100) 02/26/21 05:03 Calcium 8.8 mg/dL (8.5-10.3) 02/26/21 05:03 Phosphorus 2.0 mg/dL (2.5-4.6) L 02/24/21 15:30 Magnesium 1.9 mg/dL (1.7-2.8) 02/24/21 15:30 Total Bilirubin 0.6 mg/dL (0.2-1.0) 02/24/21 15:30 AST 187 IU/L (10-42) H 02/24/21 15:30 ALT 228 IU/L (10-60) H 02/24/21 15:30 Alkaline Phosphatase 257 IU/L (42-121) H 02/24/21 15:30 Total Protein 7.3 g/dL (6.7-8.2) 02/24/21 15:30 Albumin 3.1 g/dL (3.2-5.5) L 02/24/21 15:30 Globulin 4.2 g/dL (2.1-4.2) 02/24/21 15:30 Albumin/Globulin Ratio 0.7 (1.0-2.2) L 02/24/21 15:30 Serum HCG, Qual NEGATIVE 02/24/21 15:30 Nasal Screen MRSA (PCR) NEGATIVE (NEGATIVE) 02/24/21 20:30 ABX Reporting Has patient been on IV antibiotics over the past 48 hours?: Yes
[2021-02-26] MEDS: BENZONATATE 100 MG CAPSULE PO PRN (19:57)
[2021-02-26] MEDS: guaiFENesin/CODEINE 5 ML UDC PO PRN (19:58)
[2021-02-26] MEDS: DOXYCYCLINE 100 MG TABLET PO SCH (20:33)
[2021-02-26] MEDS: traZODone 50 MG TABLET PO SCH (23:07)
[2021-02-27] MEDS: BENZONATATE 100 MG CAPSULE PO PRN ×2 (05:31→18:27)
[2021-02-27] MEDS: SODIUM CHLORIDE FLUSH 0.9% 10 ML SYRINGE IVP SCH ×3 (05:31→16:23)
[2021-02-27] MEDS: guaiFENesin/CODEINE 5 ML UDC PO PRN ×2 (05:31→20:33)
[2021-02-27] MEDS: guaiFENesin/DEXTROMETHORPHAN 10 ML UDC PO SCH ×4 (05:41→23:26)
[2021-02-27 06:13] LABS: BASOPHILS % (AUTO) 0.1 %; EOSINOPHILS # (AUTO) 0.1 10^3/uL (0.0-0.7); EOSINOPHILS % (AUTO) 0.8 %; HCT - HEMATOCRIT 35.1 % (37.0-47.0); HGB - HEMOGLOBIN 11.9 g/dL (12.0-16.0); LYMPHOCYTES % (AUTO) 12.8 %; MEAN CORPUSCULAR HEMOGLOBIN 31.9 pg (27.0-31.0); MEAN CORPUSCULAR HGB CONC 33.9 g/dL (32.0-36.0); MEAN CORPUSCULAR VOLUME 94.1 fL (81.0-99.0); MEAN PLATELET VOLUME 9.2 fL (7.9-10.8); MONOCYTES # (AUTO) 0.2 10^3/uL (0.0-1.0); MONOCYTES % (AUTO) 1.9 %; NEUTROPHILS # (AUTO) 6.7 10^3/uL (1.5-6.6); NEUTROPHILS % (AUTO) 83.4 %; PLT - PLATELET COUNT 410 10^3/uL (130-450); RED BLOOD COUNT 3.73 10^6/uL (4.20-5.40); RED CELL DISTRIBUTION WIDTH 15.1 % (12.0-15.0)
[2021-02-27 06:22] LABS: CALCIUM 8.8 mg/dL (8.5-10.3); CREATININE 0.8 mg/dL (0.4-1.0); POTASSIUM 4.2 mmol/L (3.5-5.0)
--- NOTE | 2021-02-27 08:01 | XRAY Report ---
PROCEDURE: Chest 1 View X-Ray INDICATIONS: Hypoxia; dyspnea; COVID TECHNIQUE: One view of the chest was acquired. COMPARISON: 02/24/2021 FINDINGS: Surgical changes and devices: None. Lungs and pleura: No significant change in bilateral airspace disease when compared with 02/24/2021 ex am. Mediastinum: Mediastinal contours appear normal. Heart size is normal. Bones and chest wall: No suspicious bony lesions. Overlying soft tissues appear unremarkable. IMPRESSION: No significant change in appearance of bilateral airspace disease when compared with 02/24/2021 exam. The appearance is worsened significantly from 02/18/2021 exam. Reviewed by: Bogdan Claire MD on 02/27/2021 7:59 AM PDT Approved by: Bogdan Claire MD on 02/27/2021 7:59 AM PDT Station ID: [id number]
[2021-02-27] MEDS: ENOXAPARIN 80 MG/0.8 ML SYRINGE SUBQ SCH ×2 (10:10→20:33)
[2021-02-27] MEDS: DOXYCYCLINE 100 MG TABLET PO SCH ×2 (10:10→20:33)
[2021-02-27] MEDS: guaiFENesin 600 MG TABLET PO SCH ×2 (10:10→20:33)
--- NOTE | 2021-02-27 15:21 | XRAY Report ---
PROCEDURE: Chest for Line Placement INDICATIONS: PICC line placement TECHNIQUE: One view of the chest was acquired. COMPARISON: 02/27/2021 at 0505 hours. FINDINGS: Surgical changes and devices: PICC line projects to the mid SVC via right-sided approach.. Lungs and pleura: No pleural effusions or pneumothorax. Patchy bilateral lung opacities compatible m ultilobar pneumonia without significant changed compared to prior examination. Mediastinum: Mediastinal contours appear normal. Heart size is normal. Bones and chest wall: No suspicious bony lesions. Overlying soft tissues appear unremarkable. ly IMPRESSION: Tip of PICC line projects over the mid SVC. Reviewed by: Cheryl Samuels MD, PhD on 02/27/2021 3:20 PM PDT Approved by: Cheryl Samuesl MD, PhD on 02/27/2021 3:20 PM PDT Station ID: [id number]
--- NOTE | 2021-02-27 15:30 | ANESTHESIA PROCEDURE NOTE ---
Anesth Central Line Template - Central Line Central Line Preparation: Consent Obtained, Time out completed, Ultrasound used, Sterile prep and drape Central line location: Right Basilic Central line type: PICC Double Lumen Central line catheter tip site resides: Superior vena cava (SVC) Central line aftercare: Secured, Placement confirmed, No pneumothorax, No complications, Bundle checklist complete, Pt tolerated well
[2021-02-27] MEDS: DEXAMETHASONE 4 MG/ML VIAL IVP SCH (16:05)
[2021-02-27] MEDS: REMDESIVIR 100MG VIAL 100 MG in SODIUM CHLORIDE 0.9% 100ML 100 ML IV SCH (16:11)
[2021-02-27] MEDS: cefTRIAXone 1 GM in SODIUM CHLORIDE 0.9% MINIBAG 100 ML IV SCH (16:23)
--- NOTE | 2021-02-27 19:04 | PROVIDER PROGRESS NOTE ---
Progress Note February 27, 2021 2 PM She has been having difficult IV access. As such a PICC line was placed today. She is getting weaker as time is progressed. She is now day #4. Yesterday she was able to walk to the bathroom, walked to the sink washing hands, get back in bed with minimal tachypnea. Today, she did the same thing and could not wash her hands without being severely short of breath, and having to sit down before she got to bed which was only a 6 foot walk. She is stabilized on 12 L Oxymizer. But she is requiring more more oxygen. She was on 2 L, then 4 L, then 6 L. She is miserable. Tearful. Worried. Cough is nonstop. Absolutely no appetite. Medications are Tylenol, albuterol, Tessalon, and she is on doxycycline. Cannot tolerate azithromycin because of erythromycin allergy. Also on ceftriaxone. Decadron. Day #3. Remdesivir day #3. Temperature is 37.5. Pulse is 97. Blood pressure 110/65. Respirations 24. Dropping down to 88% on her 12 L and then bouncing back up to 92%. 5 foot 3 inch white female who weighs 84.3 kg. Generalized misery and respiratory distress. Dry hacking cough. Cannot sleep, cannot lay down flat. No JVD, shotty neck adenopathy Coarse crackles diffusely throughout all lung [place] Not tachypneic right now, but just talking or trying to move makes her tachypneic. No use of accessory muscles yet. Occasionally tachycardic regular rate and rhythm, but currently regular rate and rhythm. Abdomen soft, hypoactive bowel sounds, nontender Extremities without edema Ambulating in her room without assistance at this time. Assessment/plan 1. COVID-19 2. Acute respiratory failure with hypoxemia 3. Leukocytosis We are worried. She is going in the wrong direction with regards to oxygen requirement. She is on maximal medical therapy. Full code and to be intubated if we need to. Respiratory failure with hypoxemia is not improving. Leukocytosis felt to be possible secondary pneumonia and she is on empiric antibiotic therapy. We will continue to monitor. Continue to try and reassure her. Anesthesia has already been consulted and the new PICC line for ease of access is in place.
[2021-02-27] MEDS: traZODone 50 MG TABLET PO SCH (20:33)
[2021-02-28] MEDS: guaiFENesin/CODEINE 5 ML UDC PO PRN ×3 (04:40→20:21)
[2021-02-28] MEDS: BENZONATATE 100 MG CAPSULE PO PRN ×3 (04:40→20:22)
[2021-02-28] MEDS: SODIUM CHLORIDE FLUSH 0.9% 10 ML SYRINGE IVP SCH ×3 (04:40→17:11)
[2021-02-28] MEDS: SODIUM CHLORIDE FLUSH 0.9% 10 ML SYRINGE IVP PRN (04:40)
[2021-02-28 05:31] LABS: EOSINOPHILS % (AUTO) 0.2 %; HCT - HEMATOCRIT 37.3 % (37.0-47.0); HGB - HEMOGLOBIN 12.5 g/dL (12.0-16.0); LYMPHOCYTES # (AUTO) 0.7 10^3/uL (1.5-3.5); LYMPHOCYTES % (AUTO) 12.1 %; MEAN CORPUSCULAR HEMOGLOBIN 31.3 pg (27.0-31.0); MEAN CORPUSCULAR HGB CONC 33.5 g/dL (32.0-36.0); MEAN CORPUSCULAR VOLUME 93.3 fL (81.0-99.0); MEAN PLATELET VOLUME 9.8 fL (7.9-10.8); MONOCYTES # (AUTO) 0.1 10^3/uL (0.0-1.0); MONOCYTES % (AUTO) 1.8 %; NEUTROPHILS # (AUTO) 4.6 10^3/uL (1.5-6.6); NEUTROPHILS % (AUTO) 84.4 %; PLT - PLATELET COUNT 477 10^3/uL (130-450); RED CELL DISTRIBUTION WIDTH 14.9 % (12.0-15.0); WHITE BLOOD COUNT 5.5 x10^3/uL (4.8-10.8)
[2021-02-28 05:38] LABS: CALCIUM 8.7 mg/dL (8.5-10.3); CREATININE 0.6 mg/dL (0.4-1.0); POTASSIUM 4.3 mmol/L (3.5-5.0)
[2021-02-28] MEDS: guaiFENesin/DEXTROMETHORPHAN 10 ML UDC PO SCH ×4 (05:52→22:36)
[2021-02-28] MEDS: guaiFENesin 600 MG TABLET PO SCH ×2 (08:50→20:22)
[2021-02-28] MEDS: DEXAMETHASONE 4 MG/ML VIAL IVP SCH (08:50)
[2021-02-28] MEDS: CHOLECALCIFEROL 5,000 UNIT CAPSULE PO SCH (08:51)
[2021-02-28] MEDS: DOXYCYCLINE 100 MG TABLET PO SCH ×2 (08:51→20:30)
[2021-02-28] MEDS: REMDESIVIR 100MG VIAL 100 MG in SODIUM CHLORIDE 0.9% 100ML 100 ML IV SCH (08:52)
[2021-02-28] MEDS: ENOXAPARIN 80 MG/0.8 ML SYRINGE SUBQ SCH ×2 (08:52→20:22)
--- NOTE | 2021-02-28 15:15 | PROVIDER PROGRESS NOTE ---
Progress Note February 28, 2021 3:09 PM She had a successful PICC line placement yesterday. Much easier to hydrate her, give her her medications, and for blood draws. We started encouraging her to sleep in the prone position. After 2 hours her O2 sats went up to 98% while she is not decreasing her need for oxygen, she feels much better. She was she able to get up go to the bathroom, washed her hands, and get back in bed without gasping for breath. Today was the first time she had an appetite and try to eat some food. She is still requiring 12 to 15 L of Oxymizer all day long. This afternoon she is down to 10 L. Active Medications Acetaminophen (Acetaminophen 325 Mg Tablet) 650 mg PO Q4HR PRN PRN Reason: Pain 1 to 4 Last Admin: 02/27/21 12:53 Dose: 650 mg Documented by: Albuterol (Albuterol 1 Puff) 3 puffs INH Q4HR PRN PRN Reason: Shortness of Air/Wheezing Last Admin: 02/26/21 04:51 Dose: 3 puffs Documented by: Benzonatate (Benzonatate 100 Mg Capsule) 200 mg PO TID PRN PRN Reason: Cough Last Admin: 02/28/21 12:01 Dose: 200 mg Documented by: Cholecalciferol (Cholecalciferol 5,000 Unit Capsule) 5,[address] [facility] Last Admin: 02/28/21 08:51 Dose: 5,000 unit Documented by: Dexamethasone (Dexamethasone 4 Mg/Ml Vial) [address] [facility] Last Admin: 02/28/21 08:50 Dose: 6 mg Documented by: Doxycycline Hyclate (Doxycycline 100 Mg Tablet) [address] [facility] Last Admin: 02/28/21 08:51 Dose: 100 mg Documented by: Enoxaparin Sodium (Enoxaparin 80 Mg/0.8 Ml Syringe) [address] [facility] Last Admin: 02/28/21 08:52 Dose: 80 mg Documented by: Guaifenesin (Guaifenesin 600 Mg Tablet) [address] [facility] Last Admin: 02/28/21 08:50 Dose: 600 mg Documented by: Guaifenesin (Guaifenesin/Dextromethorphan 10 Ml Udc) [address] [facility] Last Admin: 02/28/21 12:01 Dose: 10 ml Documented by: Guaifenesin/Codeine Phosphate (Guaifenesin/Codeine 5 Ml Udc) 5 ml PO Q6HR PRN PRN Reason: Cough Last Admin: 02/28/21 12:02 Dose: 5 ml Documented by: Ceftriaxone Sodium 1 gm/ (Sodium Chloride) 100 mls @ 200 mls/hr IV DAILY@1600 [facility] Last Infusion: 02/27/21 16:55 Dose: Infused Documented by: Remdesivir 100 mg/ Sodium (Chloride) 100 mls @ 200 mls/hr IV DAILY [facility] Stop: 03/01/21 09:29 Last Infusion: 02/28/21 09:30 Dose: Infused Documented by: Ondansetron HCl (Ondansetron 4 Mg/2 Ml Vial) 4 mg IVP Q6HR PRN PRN Reason: Nausea / Vomiting Sodium Chloride (Sodium Chloride Flush 0.9% 10 Ml Syringe) 10 ml IVP PRN PRN PRN Reason: NEEDED PER PROVIDER ORDERS Last Admin: 02/28/21 04:40 Dose: 20 ml Documented by: Sodium Chloride (Sodium Chloride Flush 0.9% 10 Ml Syringe) 10 ml IVP 0100,0900,1700 [facility] Last Admin: 02/28/21 08:53 Dose: 10 ml Documented by: Trazodone HCl (Trazodone 50 Mg Tablet) [address] [facility] Last Admin: 02/27/21 20:33 Dose: 50 mg Documented by: guaiFENesin/DEXTROMETHORPHAN [Robitussin Dm] 10 ml PO Q6H 02/24/21 Vital Signs - 8 hr 02/28/21 02/28/21 08:32 12:00 Temperature 98.1 C H 36.7 C Heart Rate [ 86 89 Monitoring electrodes] Respiratory 20 20 Rate Blood Pressure 110/72 141/91 H [Left Brachial artery] O2 Saturation 93 92 Temperature is 36.7. Heart rate is 89. Blood pressure 141/91. Respirations 20. 92% saturated on 10 L oxygen mask. Alert, oriented. Still coughing a dry spasmodic cough but much less than yesterday. Actually able to complete sentences without having spasms. Neck is supple without goiter, mild adenopathy Lungs have coarse crackles diffusely but she is comfortable at rest and able to speak to me comfortably Regular rate and rhythm Abdomen is benign with normal bowel sounds Extremities without edema or cyanosis CBC is normal today. BMP is also normal random glucose 108. She had elevated liver enzymes on February 24. Assessment/plan 1. COVID-19 pneumonia 2. Acute respiratory failure with hypoxemia Her white cell count has been normal since February 25. She has been afebrile. Main problem has been hypoxemia. So far blood cultures are negative. She completes 5 days of remdesivir tomorrow Continue decardon for 10 days Lovenox for DVT prophylaxis Guaifenesin DM for cough Trazodone for sleep Completed azithromycin, will continue ceftriaxone for 5 to 7 days Repeat LFTs tomorrow morning
[2021-02-28] MEDS: cefTRIAXone 1 GM in SODIUM CHLORIDE 0.9% MINIBAG 100 ML IV SCH (17:11)
[2021-02-28] MEDS: traZODone 50 MG TABLET PO SCH (20:22)
[2021-03-01] MEDS: guaiFENesin/CODEINE 5 ML UDC PO PRN ×3 (01:59→20:51)
[2021-03-01] MEDS: BENZONATATE 100 MG CAPSULE PO PRN (05:10)
[2021-03-01] MEDS: guaiFENesin/DEXTROMETHORPHAN 10 ML UDC PO SCH ×3 (05:10→17:45)
[2021-03-01] MEDS: SODIUM CHLORIDE FLUSH 0.9% 10 ML SYRINGE IVP SCH ×3 (05:11→17:05)
[2021-03-01] MEDS: SODIUM CHLORIDE FLUSH 0.9% 10 ML SYRINGE IVP PRN ×2 (05:11→16:13)
[2021-03-01 05:53] LABS: BASOPHILS % (AUTO) 0.1 %; EOSINOPHILS % (AUTO) 0.4 %; HCT - HEMATOCRIT 34.6 % (37.0-47.0); HGB - HEMOGLOBIN 11.8 g/dL (12.0-16.0); LYMPHOCYTES # (AUTO) 0.8 10^3/uL (1.5-3.5); LYMPHOCYTES % (AUTO) 9.2 %; MEAN CORPUSCULAR HEMOGLOBIN 31.8 pg (27.0-31.0); MEAN CORPUSCULAR HGB CONC 34.1 g/dL (32.0-36.0); MEAN CORPUSCULAR VOLUME 93.3 fL (81.0-99.0); MEAN PLATELET VOLUME 9.9 fL (7.9-10.8); MONOCYTES # (AUTO) 0.2 10^3/uL (0.0-1.0); MONOCYTES % (AUTO) 2.8 %; NEUTROPHILS # (AUTO) 7.3 10^3/uL (1.5-6.6); NEUTROPHILS % (AUTO) 86.8 %; PLT - PLATELET COUNT 441 10^3/uL (130-450); RED BLOOD COUNT 3.71 10^6/uL (4.20-5.40); RED CELL DISTRIBUTION WIDTH 14.9 % (12.0-15.0); WHITE BLOOD COUNT 8.4 x10^3/uL (4.8-10.8)
[2021-03-01 06:08] LABS: ALBUMIN 2.6 g/dL (3.2-5.5); BILIRUBIN,DIRECT 0.1 mg/dL (0.1-0.5); BILIRUBIN,TOTAL 0.6 mg/dL (0.2-1.0); CALCIUM 8.8 mg/dL (8.5-10.3); CREATININE 0.7 mg/dL (0.4-1.0); POTASSIUM 4.2 mmol/L (3.5-5.0); TOTAL PROTEIN 6.7 g/dL (6.7-8.2)
[2021-03-01] MEDS: DEXAMETHASONE 4 MG/ML VIAL IVP SCH (08:10)
[2021-03-01] MEDS: CHOLECALCIFEROL 5,000 UNIT CAPSULE PO SCH (08:15)
[2021-03-01] MEDS: DOXYCYCLINE 100 MG TABLET PO SCH ×2 (08:15→20:51)
[2021-03-01] MEDS: guaiFENesin 600 MG TABLET PO SCH ×2 (08:15→20:51)
[2021-03-01] MEDS: ENOXAPARIN 80 MG/0.8 ML SYRINGE SUBQ SCH ×2 (08:36→20:51)
[2021-03-01] MEDS: REMDESIVIR 100MG VIAL 100 MG in SODIUM CHLORIDE 0.9% 100ML 100 ML IV SCH (09:10)
--- NOTE | 2021-03-01 10:11 | XRAY Report ---
PROCEDURE: Chest 1 View X-Ray INDICATIONS: covid, worse hypoxia TECHNIQUE: One view of the chest was acquired. COMPARISON: 02/27/2021 chest x-ray FINDINGS: Surgical changes and devices: Tubes and catheters are in stable in expected positions. Lungs and pleura: No pleural effusions or pneumothorax. There is no significant change in moderate p atchy bilateral ill-defined airspace opacities. Mediastinum: Mediastinal contours appear normal. Heart size is normal. Bones and chest wall: No suspicious bony lesions. Overlying soft tissues appear unremarkable. IMPRESSION: No change in bilateral pneumonia. Reviewed by: Sonny Prince MD on 03/01/2021 10:09 AM PDT Approved by: Sonny Prince MD on 03/01/2021 10:09 AM PDT Station ID: [id number]
[2021-03-01] MEDS: cefTRIAXone 1 GM in SODIUM CHLORIDE 0.9% MINIBAG 100 ML IV SCH (15:30)
--- NOTE | 2021-03-01 19:25 | PROVIDER PROGRESS NOTE ---
Progress Note 2020 7:23 PM Late note addition. Patient seen earlier today and she is stable. She is having increasing oxygen requirements to 15 L but has been stable all day long at that. Yesterday she was at 10 L. She feels stable. She does not complain of increased respiratory distress. Temperature is 37.1 heart rate is 88 blood pressure 155/98 respirations 2096% saturated on a 15 L oxygen mask. Same crackles. Not worse. No increased respiratory effort. No use of accessory muscles. Regular rate and rhythm. 88-90 heart rate. Abdomen is nontender. Normal bowel sounds. Eating 75 to 80% of her food today. Extremities without edema Assessment/plan Covid pneumonia patient with steady hypoxia. Liver enzymes have been checked today and those are improved. White cell count stable. She has completed remdesivir. Still on Decadron. Still on ceftriaxone. As well as doxycycline. We will still continue to watch closely in this very ill patient
[2021-03-01] MEDS: traZODone 50 MG TABLET PO SCH (20:51)
[2021-03-02] MEDS: guaiFENesin/DEXTROMETHORPHAN 10 ML UDC PO SCH ×5 (00:08→23:39)
[2021-03-02] MEDS: SODIUM CHLORIDE FLUSH 0.9% 10 ML SYRINGE IVP SCH ×3 (00:09→17:14)
--- NOTE | 2021-03-02 07:16 | PROVIDER PROGRESS NOTE ---
Subjective - Prog Note Date Prog Note Date: 03/02/21 Prog Note Time: 07:15 - Subjective Pt reports feeling: Improved Subjective: Although her oxygen saturations have not improved tremendously, the patient herself feels better. She is very animated this morning. Gesticulating with her hands to speak. Very angry about a personal situation with her ex- who is reluctant to take care of their daughter while she is sick in the hospital. Her hypoxia is not stopping her from being very vocal in her displeasure and anger. She is not getting short of breath when she does this. Cough has improved. Still there but not as much as it was even yesterday. She is able to prone herself and sleep in her stomach to 3 times a day. Current Medications - Current Medications Current Medications: Active Medications Acetaminophen (Acetaminophen 325 Mg Tablet) 650 mg PO Q4HR PRN PRN Reason: Pain 1 to 4 Last Admin: 02/27/21 12:53 Dose: 650 mg Documented by: Albuterol (Albuterol 1 Puff) 3 puffs INH Q4HR PRN PRN Reason: Shortness of Air/Wheezing Last Admin: 02/26/21 04:51 Dose: 3 puffs Documented by: Benzonatate (Benzonatate 100 Mg Capsule) 200 mg PO TID PRN PRN Reason: Cough Last Admin: 03/01/21 05:10 Dose: 200 mg Documented by: Cholecalciferol (Cholecalciferol 5,000 Unit Capsule) 5,000 unit PO DAILY [facility] Last Admin: 03/01/21 08:15 Dose: 5,000 unit Documented by: Dexamethasone (Dexamethasone 4 Mg/Ml Vial) 6 mg IVP DAILY [facility] Last Admin: 03/01/21 08:10 Dose: 6 mg Documented by: Doxycycline Hyclate (Doxycycline 100 Mg Tablet) 100 mg PO BID [facility] Last Admin: 03/01/21 20:51 Dose: 100 mg Documented by: Enoxaparin Sodium (Enoxaparin 80 Mg/0.8 Ml Syringe) 80 mg SUBQ BID [facility] Last Admin: 03/01/21 20:51 Dose: 80 mg Documented by: Guaifenesin (Guaifenesin 600 Mg Tablet) 600 mg PO BID [facility] Last Admin: 03/01/21 20:51 Dose: 600 mg Documented by: Guaifenesin (Guaifenesin/Dextromethorphan 10 Ml Udc) 10 ml PO Q6H [facility] Last Admin: 03/02/21 06:05 Dose: 10 ml Documented by: Guaifenesin/Codeine Phosphate (Guaifenesin/Codeine 5 Ml Udc) 5 ml PO Q6HR PRN PRN Reason: Cough Last Admin: 03/01/21 20:51 Dose: 5 ml Documented by: Ceftriaxone Sodium 1 gm/ (Sodium Chloride) 100 mls @ 200 mls/hr IV DAILY@1600 [facility] Last Infusion: 03/01/21 16:00 Dose: Infused Documented by: Ondansetron HCl (Ondansetron 4 Mg/2 Ml Vial) 4 mg IVP Q6HR PRN PRN Reason: Nausea / Vomiting Sodium Chloride (Sodium Chloride Flush 0.9% 10 Ml Syringe) 10 ml IVP PRN PRN PRN Reason: NEEDED PER PROVIDER ORDERS Last Admin: 03/01/21 16:13 Dose: 10 ml Documented by: Sodium Chloride (Sodium Chloride Flush 0.9% 10 Ml Syringe) 10 ml IVP 0100,0900,1700 [facility] Last Admin: 03/02/21 00:09 Dose: 10 ml Documented by: Trazodone HCl (Trazodone 50 Mg Tablet) 50 mg PO QPM [facility] Last Admin: 03/01/21 20:51 Dose: 50 mg Documented by: guaiFENesin/DEXTROMETHORPHAN [Robitussin Dm] 10 ml PO Q6H 02/24/21 Objective - Vital Signs/Intake & Output Reviewed Vital Signs: Yes Vital Signs: Vital Signs x48h Pulse Resp Pulse Ox 03/02/21 04:00 72 22 98 Intake & Output: Intake & Output 02/27/21 02/28/21 03/01/21 03/02/21 23:59 23:59 23:59 23:59 Intake Total 1850 1400 2080 500 Output Total 2 Balance 1850 1398 2080 500 - Objective General Appearance: positive: No acute distress, Alert, Other (Wearing Oxymizer mask) Eyes Bilateral: positive: PERRL, EOMI ENT: positive: Pharynx nml Neck: positive: No JVD. negative: Stiff neck Respiratory: positive: No respiratory distress, Rales (At bases and up to right mid lung). negative: Wheezes, Rhonchi Cardiovascular: positive: Regular rate & rhythm. negative: Gallop/S4, Friction rub Abdomen: positive: Non-tender, No organomegaly, Nml bowel sounds, No distention Skin: positive: Warm, Dry Extremities: positive: Full ROM, No pedal edema Neurologic/Psychiatric: positive: Oriented x3, CN's nml (2-12), Motor nml - Lab Results Fish Bones: 03/02/21 08:30 03/02/21 08:30 ABX Reporting Has patient been on IV antibiotics over the past 48 hours?: Yes Assessment/Plan - Problem List (1) Pneumonia due to COVID-19 virus Impression: completed 5 days of remdesivir. Still on Decadron day #7. Still on ceftriaxone day #7 and doxycycline day #6. She is on doxycycline because she is allergic to erythromycin. She is requiring quite a bit of oxygen to maintain O2 sats. But she is remained stable. Not deteriorating.On Lovenox for DVT prophylaxis. Plan: Stay the course. Hopefully she will slowly turn the corner and improve. (2) Acute respiratory failure with hypoxemia Assessment/Plan: Stable. Not improving, not deteriorating. Stay the course until she can turn the corner and improve (3) Leukocytosis Assessment/Plan: She had initial improvement. Came down to normal. Today was the first time she went back up again. There is no fever. Already on empiric antibiotics.
[2021-03-02] MEDS: DEXAMETHASONE 4 MG/ML VIAL IVP SCH (08:16)
[2021-03-02] MEDS: guaiFENesin 600 MG TABLET PO SCH ×2 (08:17→20:34)
[2021-03-02] MEDS: DOXYCYCLINE 100 MG TABLET PO SCH ×2 (08:17→20:34)
[2021-03-02] MEDS: CHOLECALCIFEROL 5,000 UNIT CAPSULE PO SCH (08:17)
[2021-03-02] MEDS: ENOXAPARIN 80 MG/0.8 ML SYRINGE SUBQ SCH ×2 (08:21→20:33)
[2021-03-02] MEDS: ALBUTEROL 1 PUFF INH PRN (08:30)
[2021-03-02 08:43] LABS: BASOPHILS % (AUTO) 0.1 %; EOSINOPHILS % (AUTO) 0.3 %; HCT - HEMATOCRIT 34.7 % (37.0-47.0); HGB - HEMOGLOBIN 11.7 g/dL (12.0-16.0); LYMPHOCYTES # (AUTO) 1.2 10^3/uL (1.5-3.5); LYMPHOCYTES % (AUTO) 9.7 %; MEAN CORPUSCULAR HEMOGLOBIN 31.4 pg (27.0-31.0); MEAN CORPUSCULAR HGB CONC 33.7 g/dL (32.0-36.0); MEAN PLATELET VOLUME 9.7 fL (7.9-10.8); MONOCYTES # (AUTO) 0.5 10^3/uL (0.0-1.0); MONOCYTES % (AUTO) 4.5 %; NEUTROPHILS # (AUTO) 10.1 10^3/uL (1.5-6.6); NEUTROPHILS % (AUTO) 84.8 %; PLT - PLATELET COUNT 469 10^3/uL (130-450); RED BLOOD COUNT 3.73 10^6/uL (4.20-5.40); RED CELL DISTRIBUTION WIDTH 15.1 % (12.0-15.0); WHITE BLOOD COUNT 11.9 x10^3/uL (4.8-10.8)
[2021-03-02 08:51] LABS: CALCIUM 8.6 mg/dL (8.5-10.3); CREATININE 0.6 mg/dL (0.4-1.0)
[2021-03-02] MEDS: cefTRIAXone 1 GM in SODIUM CHLORIDE 0.9% MINIBAG 100 ML IV SCH (15:35)
[2021-03-02] MEDS: SODIUM CHLORIDE FLUSH 0.9% 10 ML SYRINGE IVP PRN (16:11)
[2021-03-02] MEDS: guaiFENesin/CODEINE 5 ML UDC PO PRN ×2 (17:14→23:39)
[2021-03-02] MEDS: traZODone 50 MG TABLET PO SCH (20:34)
[2021-03-03] MEDS: SODIUM CHLORIDE FLUSH 0.9% 10 ML SYRINGE IVP SCH ×3 (05:36→17:15)
[2021-03-03] MEDS: guaiFENesin/DEXTROMETHORPHAN 10 ML UDC PO SCH ×3 (05:37→17:14)
[2021-03-03 05:55] LABS: BASOPHILS % (AUTO) 0.1 %; EOSINOPHILS % (AUTO) 0.4 %; HCT - HEMATOCRIT 35.4 % (37.0-47.0); LYMPHOCYTES # (AUTO) 1.7 10^3/uL (1.5-3.5); LYMPHOCYTES % (AUTO) 16.4 %; MEAN CORPUSCULAR HEMOGLOBIN 31.9 pg (27.0-31.0); MEAN CORPUSCULAR HGB CONC 33.9 g/dL (32.0-36.0); MEAN CORPUSCULAR VOLUME 94.1 fL (81.0-99.0); MEAN PLATELET VOLUME 9.7 fL (7.9-10.8); MONOCYTES # (AUTO) 0.5 10^3/uL (0.0-1.0); MONOCYTES % (AUTO) 4.6 %; NEUTROPHILS # (AUTO) 7.8 10^3/uL (1.5-6.6); NEUTROPHILS % (AUTO) 77.2 %; PLT - PLATELET COUNT 397 10^3/uL (130-450); RED BLOOD COUNT 3.76 10^6/uL (4.20-5.40); RED CELL DISTRIBUTION WIDTH 14.9 % (12.0-15.0); WHITE BLOOD COUNT 10.1 x10^3/uL (4.8-10.8)
[2021-03-03 06:03] LABS: CALCIUM 8.9 mg/dL (8.5-10.3); CREATININE 0.6 mg/dL (0.4-1.0); POTASSIUM 4.5 mmol/L (3.5-5.0)
[2021-03-03] MEDS: ENOXAPARIN 80 MG/0.8 ML SYRINGE SUBQ SCH ×2 (08:22→20:54)
[2021-03-03] MEDS: DEXAMETHASONE 4 MG/ML VIAL IVP SCH (08:23)
[2021-03-03] MEDS: CHOLECALCIFEROL 5,000 UNIT CAPSULE PO SCH (08:24)
[2021-03-03] MEDS: DOXYCYCLINE 100 MG TABLET PO SCH ×2 (08:24→20:54)
[2021-03-03] MEDS: guaiFENesin 600 MG TABLET PO SCH ×2 (08:24→20:54)
[2021-03-03] MEDS: cefTRIAXone 1 GM in SODIUM CHLORIDE 0.9% MINIBAG 100 ML IV SCH (15:23)
--- NOTE | 2021-03-03 16:04 | PROVIDER PROGRESS NOTE ---
Subjective - Prog Note Date Prog Note Date: 03/03/21 Prog Note Time: 16:00 - Subjective Subjective: Last night was a rough night. She could not catch her breath. Kept on coughing. Then she had a shower this morning because she was just dying to get into the water. She desatted into the mid 80s with 10 L oxygen. The good news was that she recovered very quickly within a matter of 30 to 45 seconds. 2 days ago was taking her 5 to 6 minutes to recover from standing up to walk to the bathroom wash her hands and get back in bed again. Cough is spasmodic. Off and on. A little bit better today. Appetite continues to be not as good as she would like but she is able to get hungry and eat a little bit of food. She denies chest pain, abdominal pain, leg edema Current Medications - Current Medications Current Medications: Active Medications Acetaminophen (Acetaminophen 325 Mg Tablet) 650 mg PO Q4HR PRN PRN Reason: Pain 1 to 4 Last Admin: 02/27/21 12:53 Dose: 650 mg Documented by: Albuterol (Albuterol 1 Puff) 3 puffs INH Q4HR PRN PRN Reason: Shortness of Air/Wheezing Last Admin: 03/02/21 08:30 Dose: 3 puffs Documented by: Benzonatate (Benzonatate 100 Mg Capsule) 200 mg PO TID PRN PRN Reason: Cough Last Admin: 03/01/21 05:10 Dose: 200 mg Documented by: Cholecalciferol (Cholecalciferol 5,000 Unit Capsule) 5,000 unit PO DAILY [facility] Last Admin: 03/03/21 08:24 Dose: 5,000 unit Documented by: Dexamethasone (Dexamethasone 4 Mg/Ml Vial) 6 mg IVP DAILY [facility] Last Admin: 03/03/21 08:23 Dose: 6 mg Documented by: Doxycycline Hyclate (Doxycycline 100 Mg Tablet) 100 mg PO BID [facility] Stop: 03/03/21 23:00 Last Admin: 03/03/21 08:24 Dose: 100 mg Documented by: Enoxaparin Sodium (Enoxaparin 80 Mg/0.8 Ml Syringe) 80 mg SUBQ BID [facility] Last Admin: 03/03/21 08:22 Dose: 80 mg Documented by: Guaifenesin (Guaifenesin 600 Mg Tablet) 600 mg PO BID [facility] Last Admin: 03/03/21 08:24 Dose: 600 mg Documented by: Guaifenesin (Guaifenesin/Dextromethorphan 10 Ml Udc) 10 ml PO Q6H [facility] Last Admin: 03/03/21 12:16 Dose: 10 ml Documented by: Guaifenesin/Codeine Phosphate (Guaifenesin/Codeine 5 Ml Udc) 5 ml PO Q6HR PRN PRN Reason: Cough Last Admin: 03/02/21 23:39 Dose: 5 ml Documented by: Ceftriaxone Sodium 1 gm/ (Sodium Chloride) 100 mls @ 200 mls/hr IV DAILY@1600 [facility] Stop: 03/03/21 18:00 Last Admin: 03/03/21 15:23 Dose: 200 mls/hr Documented by: Ondansetron HCl (Ondansetron 4 Mg/2 Ml Vial) 4 mg IVP Q6HR PRN PRN Reason: Nausea / Vomiting Sodium Chloride (Sodium Chloride Flush 0.9% 10 Ml Syringe) 10 ml IVP PRN PRN PRN Reason: NEEDED PER PROVIDER ORDERS Last Admin: 03/02/21 16:11 Dose: 10 ml Documented by: Sodium Chloride (Sodium Chloride Flush 0.9% 10 Ml Syringe) 10 ml IVP 0100,0900,1700 [facility] Last Admin: 03/03/21 08:19 Dose: 10 ml Documented by: Trazodone HCl (Trazodone 50 Mg Tablet) 50 mg PO QPM [facility] Last Admin: 03/02/21 20:34 Dose: 50 mg Documented by: guaiFENesin/DEXTROMETHORPHAN [Robitussin Dm] 10 ml PO Q6H 02/24/21 Objective - Vital Signs/Intake & Output Reviewed Vital Signs: Yes Vital Signs: Vital Signs x48h Temp Pulse Resp BP Pulse Ox 03/03/21 15:27 36.9 C 100 22 120/81 H 92 03/03/21 12:00 36.8 C 97 22 108/75 95 03/03/21 11:20 79 20 99 03/03/21 11:00 101 H 22 78 L 03/03/21 10:00 16 97 03/03/21 08:00 36.5 C 83 13 116/59 L 92 Intake & Output: Intake & Output 02/28/21 03/01/21 03/02/21 03/03/21 23:59 23:59 23:59 23:59 Intake Total 1400 2080 1820 855 Output Total 2 3 Balance 1398 2080 1820 852 - Objective General Appearance: positive: No acute distress, Alert, Other (In bed. Oxymizer mask on. 13 L is resulting in a 97% saturation at rest. When she gets up to do anything she goes down to 78%. Again quickly recovers. Heart rate goes in and out of junctional rhythm. We will look back at her EKG she is in an accelerated junctional rhythm off and on) Eyes Bilateral: positive: PERRL, EOMI ENT: positive: No signs of dehydration Neck: positive: No JVD. negative: Stiff neck Respiratory: positive: Rales, Other (No use of accessory muscles. The crackles are fine and at both bases and up the right midlung). negative: Wheezes, Rhonchi Cardiovascular: positive: Regular rate & rhythm. negative: Gallop/S4, Friction rub Abdomen: positive: Non-tender, No organomegaly, Nml bowel sounds, No distention Skin: positive: Warm, Dry Extremities: positive: Full ROM, No pedal edema Neurologic/Psychiatric: positive: Oriented x3, CN's nml (2-12), Motor nml, Sensation nml - Lab Results Fish Bones: 03/03/21 05:42 03/03/21 05:42 Other Labs: Lab Results x24hrs 03/03/21 03/03/21 Range/Units 05:42 05:42 WBC 10.1 (4.8-10.8) x10^3/uL RBC 3.76 L (4.20-5.40) 10^6/uL Hgb 12.0 (12.0-16.0) g/dL Hct 35.4 L (37.0-47.0) % MCV 94.1 (81.0-99.0) fL MCH 31.9 H (27.0-31.0) pg MCHC 33.9 (32.0-36.0) g/dL RDW 14.9 (12.0-15.0) % Plt Count 397 (130-450) 10^3/uL MPV 9.7 (7.9-10.8) fL Neut # (Auto) 7.8 H (1.5-6.6) 10^3/uL Lymph # (Auto) 1.7 (1.5-3.5) 10^3/uL [place] # (Auto) 0.5 (0.0-1.0) 10^3/uL Eos # (Auto) 0.0 (0.0-0.7) 10^3/uL Baso # (Auto) 0.0 (0.0-0.1) 10^3/uL Absolute Nucleated RBC 0.00 x10^3/uL Nucleated RBC % 0.0 /100WBC Sodium 138 (135-145) mmol/L Potassium 4.5 (3.5-5.0) mmol/L Chloride 102 (101-111) mmol/L Carbon Dioxide 26 (21-32) mmol/L Anion Gap 10.0 (6-13) BUN 20 (6-20) mg/dL Creatinine 0.6 (0.4-1.0) mg/dL Estimated GFR (MDRD) 109 (>89) Glucose 94 (70-100) mg/dL Calcium 8.9 (8.5-10.3) mg/dL ABX Reporting Has patient been on IV antibiotics over the past 48 hours?: Yes Assessment/Plan - Problem List (1) Pneumonia due to COVID-19 virus Impression: (1) Pneumonia due to COVID-19 virus Impression: completed 5 days of remdesivir. Still on Decadron day #8. Still on ceftriaxone day #8 and doxycycline day #67. She is on doxycycline because she is allergic to erythromycin. She continues to require a high load of oxygen to maintain O2 sats. But she has not needed BiPAP. She has remained stable. I am description not deteriorating. On Lovenox for DVT prophylaxis. Plan: Discontinue antibiotics Decadron for 10 days Continue oxygen until she can be normal on room air (2) Acute respiratory failure with hypoxemia Assessment/Plan: Stable. Not improving, not deteriorating. Stay the course until she can turn the corner and improve (3) Leukocytosis Assessment/Plan: White cell count came down to normal. Stayed normal until yesterday. Single spike. Today she is normal. We will still stop antibiotics
[2021-03-03] MEDS: traZODone 50 MG TABLET PO SCH (20:54)
[2021-03-03] MEDS: FLUTICASONE NASAL SPRAY NAS SCH (21:19)
[2021-03-03] MEDS: LORATADINE 10 MG TABLET PO SCH (21:21)
[2021-03-04] MEDS: guaiFENesin/DEXTROMETHORPHAN 10 ML UDC PO SCH ×5 (00:40→23:55)
[2021-03-04] MEDS: guaiFENesin/CODEINE 5 ML UDC PO PRN (00:40)
[2021-03-04] MEDS: SODIUM CHLORIDE FLUSH 0.9% 10 ML SYRINGE IVP SCH ×4 (01:03→23:55)
[2021-03-04 05:32] LABS: BASOPHILS % (AUTO) 0.2 %; EOSINOPHILS % (AUTO) 0.3 %; HCT - HEMATOCRIT 34.8 % (37.0-47.0); HGB - HEMOGLOBIN 11.9 g/dL (12.0-16.0); LYMPHOCYTES % (AUTO) 14.9 %; MEAN CORPUSCULAR HGB CONC 34.2 g/dL (32.0-36.0); MEAN CORPUSCULAR VOLUME 93.5 fL (81.0-99.0); MEAN PLATELET VOLUME 9.4 fL (7.9-10.8); MONOCYTES # (AUTO) 0.7 10^3/uL (0.0-1.0); MONOCYTES % (AUTO) 5.5 %; NEUTROPHILS # (AUTO) 10.2 10^3/uL (1.5-6.6); NEUTROPHILS % (AUTO) 77.8 %; PLT - PLATELET COUNT 424 10^3/uL (130-450); RED BLOOD COUNT 3.72 10^6/uL (4.20-5.40); RED CELL DISTRIBUTION WIDTH 15.1 % (12.0-15.0); WHITE BLOOD COUNT 13.1 x10^3/uL (4.8-10.8)
[2021-03-04 05:40] LABS: CALCIUM 8.9 mg/dL (8.5-10.3); CREATININE 0.6 mg/dL (0.4-1.0); POTASSIUM 4.1 mmol/L (3.5-5.0)
[2021-03-04] MEDS: guaiFENesin 600 MG TABLET PO SCH ×2 (09:02→20:12)
[2021-03-04] MEDS: BENZONATATE 100 MG CAPSULE PO PRN ×2 (09:03→09:06)
[2021-03-04] MEDS: LORATADINE 10 MG TABLET PO SCH (09:04)
[2021-03-04] MEDS: CHOLECALCIFEROL 5,000 UNIT CAPSULE PO SCH (09:05)
[2021-03-04] MEDS: DEXAMETHASONE 4 MG/ML VIAL IVP SCH (09:07)
[2021-03-04] MEDS: ENOXAPARIN 80 MG/0.8 ML SYRINGE SUBQ SCH ×2 (09:08→20:13)
[2021-03-04] MEDS: FLUTICASONE NASAL SPRAY NAS SCH (09:21)
[2021-03-04] MEDS ORDERED: PHENOL THROAT SPRAY 177 ML MM PRN (10:01)
[2021-03-04] MEDS: BENZOCAINE/MENTHOL LOZENGE MM PRN ×2 (10:42→20:12)
--- NOTE | 2021-03-04 12:00 | PROVIDER PROGRESS NOTE ---
Subjective - Prog Note Date Prog Note Date: 03/04/21 Prog Note Time: 11:58 - Subjective Pt reports feeling: No change Subjective: The spasmodic coughing will improve for a day or so and then it gets worse again. Last night was a rough night. She is proning herself to sleep. It does help oxygenation but then he gives her back pain. She is make herself eat full meals to maintain nutrition. While she has been stable for the last 3 or 4 days with regards to oxygen requirement, is not going down very much. She was as high as 15 L on the , and down to 13 L yesterday. Today she is still on 10 L/min oxime mask. O2 sats go to 96% at rest. Sometimes go down to 90%. With getting up to go to the bathroom or to eat her O2 sats dropped to 84%. This is on the 10 L. She rebounds quickly within 45 seconds to a minute to acceptable oxygen levels when she stops moving or eating. Current Medications - Current Medications Current Medications: Active Medications Acetaminophen (Acetaminophen 325 Mg Tablet) 650 mg PO Q4HR PRN PRN Reason: Pain 1 to 4 Last Admin: 02/27/21 12:53 Dose: 650 mg Documented by: Albuterol (Albuterol 1 Puff) 3 puffs INH Q4HR PRN PRN Reason: Shortness of Air/Wheezing Last Admin: 03/02/21 08:30 Dose: 3 puffs Documented by: Benzonatate (Benzonatate 100 Mg Capsule) 200 mg PO TID PRN PRN Reason: Cough Last Admin: 03/04/21 09:06 Dose: 200 mg Documented by: Cholecalciferol (Cholecalciferol 5,000 Unit Capsule) 5,000 unit PO DAILY [facility] Last Admin: 03/04/21 09:05 Dose: 5,000 unit Documented by: Dexamethasone (Dexamethasone 4 Mg/Ml Vial) 6 mg IVP DAILY [facility] Last Admin: 03/04/21 09:07 Dose: 6 mg Documented by: Enoxaparin Sodium (Enoxaparin 80 Mg/0.8 Ml Syringe) 80 mg SUBQ BID [facility] Last Admin: 03/04/21 09:08 Dose: 80 mg Documented by: Fluticasone Propionate (Fluticasone Nasal [place]) 1 sprays JOSH DAILY [facility] Last Admin: 03/04/21 09:21 Dose: 1 sprays Documented by: Guaifenesin (Guaifenesin 600 Mg Tablet) 600 mg PO BID [facility] Last Admin: 03/04/21 09:02 Dose: 600 mg Documented by: Guaifenesin (Guaifenesin/Dextromethorphan 10 Ml Udc) 10 ml PO Q6H [facility] Last Admin: 03/04/21 08:59 Dose: 10 ml Documented by: Guaifenesin/Codeine Phosphate (Guaifenesin/Codeine 5 Ml Udc) 5 ml PO Q6HR PRN PRN Reason: Cough Last Admin: 03/04/21 00:40 Dose: 5 ml Documented by: Loratadine (Loratadine 10 Mg Tablet) 10 mg PO DAILY [facility] Last Admin: 03/04/21 09:04 Dose: 10 mg Documented by: Ondansetron HCl (Ondansetron 4 Mg/2 Ml Vial) 4 mg IVP Q6HR PRN PRN Reason: Nausea / Vomiting Phenol/Menthol (Phenol Throat [place] 177 Ml) 2 sprays MM Q2HR PRN PRN Reason: Throat Pain Sodium Chloride (Sodium Chloride Flush 0.9% 10 Ml Syringe) 10 ml IVP PRN PRN PRN Reason: NEEDED PER PROVIDER ORDERS Last Admin: 03/02/21 16:11 Dose: 10 ml Documented by: Sodium Chloride (Sodium Chloride Flush 0.9% 10 Ml Syringe) 10 ml IVP 0100,0900,1700 [facility] Last Admin: 03/04/21 09:15 Dose: Not Given Documented by: Sodium Chloride (Sodium Chloride Flush 0.9% 10 Ml Syringe) 20 ml IVP PRN PRN PRN Reason: After Blood Draw Throat Lozenges (Benzocaine/Menthol Lozenge) 1 lozenge MM Q2HR PRN PRN Reason: Throat pain Last Admin: 03/04/21 10:42 Dose: 1 lozenge Documented by: Trazodone HCl (Trazodone 50 Mg Tablet) 50 mg PO QPM [facility] Last Admin: 03/03/21 20:54 Dose: 50 mg Documented by: guaiFENesin/DEXTROMETHORPHAN [Robitussin Dm] 10 ml PO Q6H 02/24/21 Objective - Vital Signs/Intake & Output Reviewed Vital Signs: Yes Vital Signs: Vital Signs x48h Temp Pulse Resp BP Pulse Ox 03/04/21 09:25 85 21 112/69 90 L 03/04/21 07:00 36.9 C 66 19 96 03/04/21 05:00 36.9 C 93 23 131/101 H 96 Intake & Output: Intake & Output 03/01/21 03/02/21 03/03/21 03/04/21 23:59 23:59 23:59 23:59 Intake Total 2079 Output Total 3 Balance 2079 1819 1941 500 - Objective General Appearance: positive: Alert, Mild distress, Other (Oxime mask in place. Alert, lucid, trying to stay positive because she is so tired of being here) Eyes Bilateral: positive: PERRL, EOMI ENT: positive: No signs of dehydration Neck: positive: No JVD. negative: Stiff neck Respiratory: positive: No respiratory distress, Rales (Fine crackles at bases and on the right side still going midlung. But not nearly as loud as they were the last few days. Good air movement.). negative: Wheezes, Rhonchi Cardiovascular: positive: Regular rate & rhythm. negative: Gallop/S4, Friction rub Abdomen: positive: Non-tender, No organomegaly, Nml bowel sounds, No distention Skin: positive: Warm, Dry Extremities: positive: Full ROM, No pedal edema Neurologic/Psychiatric: positive: Oriented x3, CN's nml (2-12), Motor nml - Lab Results Fish Bones: 03/04/21 05:20 03/04/21 05:20 Other Labs: Lab Results x24hrs 03/04/21 03/04/21 Range/Units 05:20 05:20 WBC 13.1 H (4.8-10.8) x10^3/uL RBC 3.72 L (4.20-5.40) 10^6/uL Hgb 11.9 L (12.0-16.0) g/dL Hct 34.8 L (37.0-47.0) % MCV 93.5 (81.0-99.0) fL MCH 32.0 H (27.0-31.0) pg MCHC 34.2 (32.0-36.0) g/dL RDW 15.1 H (12.0-15.0) % Plt Count 424 (130-450) 10^3/uL MPV 9.4 (7.9-10.8) fL Neut # (Auto) 10.2 H (1.5-6.6) 10^3/uL Lymph # (Auto) 2.0 (1.5-3.5) 10^3/uL [place] # (Auto) 0.7 (0.0-1.0) 10^3/uL Eos # (Auto) 0.0 (0.0-0.7) 10^3/uL Baso # (Auto) 0.0 (0.0-0.1) 10^3/uL Absolute Nucleated RBC 0.00 x10^3/uL Nucleated RBC % 0.0 /100WBC Sodium 138 (135-145) mmol/L Potassium 4.1 (3.5-5.0) mmol/L Chloride 102 (101-111) mmol/L Carbon Dioxide 27 (21-32) mmol/L Anion Gap 9.0 (6-13) BUN 22 H (6-20) mg/dL Creatinine 0.6 (0.4-1.0) mg/dL Estimated GFR (MDRD) 109 (>89) Glucose 114 H (70-100) mg/dL Calcium 8.9 (8.5-10.3) mg/dL ABX Reporting Has patient been on IV antibiotics over the past 48 hours?: Yes Assessment/Plan - Problem List (1) Pneumonia due to COVID-19 virus Impression: completed 5 days of remdesivir. Still on Decadron day #9. Completed ceftriaxone day #8 and doxycycline day #7. She was on doxycycline because she is allergic to erythromycin. She continues to require a high load of oxygen to maintain O2 sats. But she has not needed BiPAP. She has remained stable. On Lovenox for DVT prophylaxis. Plan: Decadron for 10 days Continue oxygen until she can be normal on room air (2) Acute respiratory failure with hypoxemia continues. Assessment/Plan: Stable. Slight improvement today and down to 11 liters. Hopefully she will continue to need less and less. (3) Leukocytosis Assessment/Plan: White cell count came down to normal. Stayed normal 03/02 then Single spike.Normal now. Antibiotics have been stopped since 03/03 after 7 days.
[2021-03-04] MEDS: ASCORBIC ACID 500 MG TABLET PO SCH (13:49)
[2021-03-04] MEDS: traZODone 50 MG TABLET PO SCH (20:12)
[2021-03-05] MEDS: SODIUM CHLORIDE FLUSH 0.9% 10 ML SYRINGE IVP PRN ×2 (04:57)
[2021-03-05 05:28] LABS: BASOPHILS % (AUTO) 0.1 %; EOSINOPHILS % (AUTO) 0.1 %; HCT - HEMATOCRIT 35.1 % (37.0-47.0); HGB - HEMOGLOBIN 11.7 g/dL (12.0-16.0); LYMPHOCYTES # (AUTO) 1.8 10^3/uL (1.5-3.5); LYMPHOCYTES % (AUTO) 12.3 %; MEAN CORPUSCULAR HEMOGLOBIN 31.2 pg (27.0-31.0); MEAN CORPUSCULAR HGB CONC 33.3 g/dL (32.0-36.0); MEAN CORPUSCULAR VOLUME 93.6 fL (81.0-99.0); MEAN PLATELET VOLUME 9.6 fL (7.9-10.8); MONOCYTES # (AUTO) 0.8 10^3/uL (0.0-1.0); MONOCYTES % (AUTO) 5.6 %; NEUTROPHILS # (AUTO) 11.6 10^3/uL (1.5-6.6); NEUTROPHILS % (AUTO) 80.5 %; PLT - PLATELET COUNT 463 10^3/uL (130-450); RED BLOOD COUNT 3.75 10^6/uL (4.20-5.40); RED CELL DISTRIBUTION WIDTH 14.9 % (12.0-15.0); WHITE BLOOD COUNT 14.4 x10^3/uL (4.8-10.8)
[2021-03-05 05:39] LABS: CREATININE 0.7 mg/dL (0.4-1.0); POTASSIUM 4.1 mmol/L (3.5-5.0)
[2021-03-05] MEDS: guaiFENesin/DEXTROMETHORPHAN 10 ML UDC PO SCH ×4 (05:59→23:49)
--- NOTE | 2021-03-05 07:16 | PROVIDER PROGRESS NOTE ---
Subjective - Prog Note Date Prog Note Date: 03/05/21 Prog Note Time: 07:14 - Subjective Subjective: She just cannot sleep at night. Anxiety, coughing, chest being on fire just keep her up. Nonstop coughing this morning. Describes a tickle in her throat that just will not let her stop. But she is eating. In a patient who had been up to 15 L of oxygen she has been coming down since the . She was 11 L on the , down to 9 L later that night. Today she is down to 6 L. No diarrhea. No abdominal pain. Short of breath. Coughing. Current Medications - Current Medications Current Medications: Active Medications Acetaminophen (Acetaminophen 325 Mg Tablet) 650 mg PO Q4HR PRN PRN Reason: Pain 1 to 4 Last Admin: 02/27/21 12:53 Dose: 650 mg Documented by: Albuterol (Albuterol 1 Puff) 3 puffs INH Q4HR PRN PRN Reason: Shortness of Air/Wheezing Last Admin: 03/02/21 08:30 Dose: 3 puffs Documented by: Ascorbic Acid (Ascorbic Acid 500 Mg Tablet) 500 mg PO DAILY [facility] Last Admin: 03/04/21 13:49 Dose: 500 mg Documented by: Benzonatate (Benzonatate 100 Mg Capsule) 200 mg PO TID PRN PRN Reason: Cough Last Admin: 03/04/21 09:06 Dose: 200 mg Documented by: Cholecalciferol (Cholecalciferol 5,000 Unit Capsule) 5,000 unit PO DAILY [facility] Last Admin: 03/04/21 09:05 Dose: 5,000 unit Documented by: Dexamethasone (Dexamethasone 4 Mg/Ml Vial) 6 mg IVP DAILY [facility] Last Admin: 03/04/21 09:07 Dose: 6 mg Documented by: Enoxaparin Sodium (Enoxaparin 80 Mg/0.8 Ml Syringe) 80 mg SUBQ BID [facility] Last Admin: 03/04/21 20:13 Dose: 80 mg Documented by: Fluticasone Propionate (Fluticasone Nasal [place]) 1 sprays JOSH DAILY [facility] Last Admin: 03/04/21 09:21 Dose: 1 sprays Documented by: Guaifenesin (Guaifenesin 600 Mg Tablet) 600 mg PO BID [facility] Last Admin: 03/04/21 20:12 Dose: 600 mg Documented by: Guaifenesin (Guaifenesin/Dextromethorphan 10 Ml Udc) 10 ml PO Q6H [facility] Last Admin: 03/05/21 05:59 Dose: 10 ml Documented by: Guaifenesin/Codeine Phosphate (Guaifenesin/Codeine 5 Ml Udc) 5 ml PO Q6HR PRN PRN Reason: Cough Last Admin: 03/04/21 00:40 Dose: 5 ml Documented by: Loratadine (Loratadine 10 Mg Tablet) 10 mg PO DAILY [facility] Last Admin: 03/04/21 09:04 Dose: 10 mg Documented by: Ondansetron HCl (Ondansetron 4 Mg/2 Ml Vial) 4 mg IVP Q6HR PRN PRN Reason: Nausea / Vomiting Phenol/Menthol (Phenol Throat [place] 177 Ml) 2 sprays MM Q2HR PRN PRN Reason: Throat Pain Sodium Chloride (Sodium Chloride Flush 0.9% 10 Ml Syringe) 10 ml IVP PRN PRN PRN Reason: NEEDED PER PROVIDER ORDERS Last Admin: 03/05/21 04:57 Dose: 10 ml Documented by: Sodium Chloride (Sodium Chloride Flush 0.9% 10 Ml Syringe) 10 ml IVP 0100,0900,1700 [facility] Last Admin: 03/04/21 23:55 Dose: 10 ml Documented by: Sodium Chloride (Sodium Chloride Flush 0.9% 10 Ml Syringe) 20 ml IVP PRN PRN PRN Reason: After Blood Draw Last Admin: 03/05/21 04:57 Dose: 20 ml Documented by: Throat Lozenges (Benzocaine/Menthol Lozenge) 1 lozenge MM Q2HR PRN PRN Reason: Throat pain Last Admin: 03/04/21 20:12 Dose: 1 lozenge Documented by: Trazodone HCl (Trazodone 50 Mg Tablet) 50 mg PO QPM [facility] Last Admin: 03/04/21 20:12 Dose: 50 mg Documented by: guaiFENesin/DEXTROMETHORPHAN [Robitussin Dm] 10 ml PO Q6H 02/24/21 Objective - Vital Signs/Intake & Output Reviewed Vital Signs: Yes Vital Signs: Vital Signs x48h Temp Pulse Resp BP Pulse Ox 03/05/21 04:56 36.6 C 75 24 123/85 H 97 03/04/21 23:53 36.9 C 80 20 130/83 H 96 Intake & Output: Intake & Output 03/02/21 03/03/21 03/04/21 03/05/21 23:59 23:59 23:59 23:59 Intake Total 1819 1944 860 500 Output Total 3 Balance 1819 1941 860 500 - Objective General Appearance: positive: Alert, Moderate distress Eyes Bilateral: positive: PERRL, EOMI ENT: positive: No signs of dehydration Neck: positive: No JVD. negative: Stiff neck Respiratory: positive: Rales (Crackles of been present in both bases, and right midlung. Today I only hear crackles in the right midlung. However she has considerable spasmodic coughing during the exam.). negative: Wheezes, Rhonchi Cardiovascular: positive: Regular rate & rhythm. negative: Systolic murmur, Gallop/S4 Abdomen: positive: Non-tender, No organomegaly, Nml bowel sounds, No distention Skin: positive: Warm, Dry Extremities: positive: Full ROM, No pedal edema Neurologic/Psychiatric: positive: Oriented x3, CN's nml (2-12), Motor nml, Sensation nml - Lab Results Fish Bones: 03/05/21 05:00 03/05/21 05:00 Other Labs: Lab Results x24hrs 03/05/21 03/05/21 Range/Units 05:00 05:00 WBC 14.4 H (4.8-10.8) x10^3/uL RBC 3.75 L (4.20-5.40) 10^6/uL Hgb 11.7 L (12.0-16.0) g/dL Hct 35.1 L (37.0-47.0) % MCV 93.6 (81.0-99.0) fL MCH 31.2 H (27.0-31.0) pg MCHC 33.3 (32.0-36.0) g/dL RDW 14.9 (12.0-15.0) % Plt Count 463 H (130-450) 10^3/uL MPV 9.6 (7.9-10.8) fL Neut # (Auto) 11.6 H (1.5-6.6) 10^3/uL Lymph # (Auto) 1.8 (1.5-3.5) 10^3/uL [place] # (Auto) 0.8 (0.0-1.0) 10^3/uL Eos # (Auto) 0.0 (0.0-0.7) 10^3/uL Baso # (Auto) 0.0 (0.0-0.1) 10^3/uL Absolute Nucleated RBC 0.00 x10^3/uL Nucleated RBC % 0.0 /100WBC Sodium 137 (135-145) mmol/L Potassium 4.1 (3.5-5.0) mmol/L Chloride 102 (101-111) mmol/L Carbon Dioxide 27 (21-32) mmol/L Anion Gap 8.0 (6-13) BUN 23 H (6-20) mg/dL Creatinine 0.7 (0.4-1.0) mg/dL Estimated GFR (MDRD) 91 (>89) Glucose 99 (70-100) mg/dL Calcium 9.0 (8.5-10.3) mg/dL ABX Reporting Has patient been on IV antibiotics over the past 48 hours?: Yes Assessment/Plan - Problem List (1) Pneumonia due to COVID-19 virus Impression: completed 5 days of remdesivir. Today Decadron day #10. Completed ceftriaxone day #8 and doxycycline day #7. She was on doxycycline because she is allergic to erythromycin. She continues to require a high load of oxygen to maintain O2 sats. But she has not needed BiPAP.Over the last 48 hours O2 requirement finally dropping. She had a D-dimer of 594 on admission and asked that she has been on full dose of Lovenox not so much prophylaxis. Plan: Dc Decardron after today If her O2 drops by 1-2 liters daily hopefully she can go home in next 2-3 days. This is wonderful. (2) Acute respiratory failure with hypoxemia Assessment/Plan: Stable. Very good improvement today and down to 6 liters from 11.
[2021-03-05] MEDS: ASCORBIC ACID 500 MG TABLET PO SCH (09:09)
[2021-03-05] MEDS: CHOLECALCIFEROL 5,000 UNIT CAPSULE PO SCH (09:09)
[2021-03-05] MEDS: DEXAMETHASONE 4 MG/ML VIAL IVP SCH (09:10)
[2021-03-05] MEDS: ENOXAPARIN 80 MG/0.8 ML SYRINGE SUBQ SCH ×2 (09:10→20:42)
[2021-03-05] MEDS: FLUTICASONE NASAL SPRAY NAS SCH (09:10)
[2021-03-05] MEDS: LORATADINE 10 MG TABLET PO SCH (09:11)
[2021-03-05] MEDS: guaiFENesin 600 MG TABLET PO SCH ×2 (09:11→20:42)
[2021-03-05] MEDS: SODIUM CHLORIDE FLUSH 0.9% 10 ML SYRINGE IVP SCH ×3 (09:11→23:49)
[2021-03-05] MEDS: BENZOCAINE/MENTHOL LOZENGE MM PRN ×2 (09:13→17:31)
[2021-03-05] MEDS: SACCHAROMYCES BOULARDII 250 MG CAPSULE PO SCH ×2 (13:12→17:31)
[2021-03-05] MEDS: traZODone 50 MG TABLET PO SCH (20:42)
[2021-03-05] MEDS: guaiFENesin/CODEINE 5 ML UDC PO PRN (21:55)
[2021-03-05] MEDS: BENZONATATE 100 MG CAPSULE PO PRN (23:49)
[2021-03-06] MEDS: SODIUM CHLORIDE FLUSH 0.9% 10 ML SYRINGE IVP PRN ×2 (05:52)
[2021-03-06] MEDS: guaiFENesin/DEXTROMETHORPHAN 10 ML UDC PO SCH ×3 (05:52→18:08)
[2021-03-06 06:12] LABS: BASOPHILS % (AUTO) 0.2 %; EOSINOPHILS % (AUTO) 0.1 %; HCT - HEMATOCRIT 34.3 % (37.0-47.0); HGB - HEMOGLOBIN 11.2 g/dL (12.0-16.0); LYMPHOCYTES # (AUTO) 2.1 10^3/uL (1.5-3.5); LYMPHOCYTES % (AUTO) 12.3 %; MEAN CORPUSCULAR HEMOGLOBIN 31.1 pg (27.0-31.0); MEAN CORPUSCULAR HGB CONC 32.7 g/dL (32.0-36.0); MEAN CORPUSCULAR VOLUME 95.3 fL (81.0-99.0); MEAN PLATELET VOLUME 9.5 fL (7.9-10.8); MONOCYTES % (AUTO) 5.9 %; NEUTROPHILS # (AUTO) 13.3 10^3/uL (1.5-6.6); NEUTROPHILS % (AUTO) 79.8 %; PLT - PLATELET COUNT 417 10^3/uL (130-450); RED CELL DISTRIBUTION WIDTH 15.3 % (12.0-15.0); WHITE BLOOD COUNT 16.7 x10^3/uL (4.8-10.8)
[2021-03-06 06:21] LABS: CALCIUM 8.7 mg/dL (8.5-10.3); CREATININE 0.9 mg/dL (0.4-1.0); POTASSIUM 3.7 mmol/L (3.5-5.0)
--- NOTE | 2021-03-06 07:47 | PROVIDER PROGRESS NOTE ---
Subjective - Prog Note Date Prog Note Date: 03/06/21 Prog Note Time: 07:47 - Subjective Pt reports feeling: Improved Subjective: Her main complaint is not being able to sleep. She wakes up at 2 in the morning and she is wide-awake. Would like something for sleep tonight. Continues to have a dry nonproductive cough. More like a clearing of her throat. Tickle from the base of her throat. No fever, no chills. Eating food. Getting up in the room. Getting a shower. Current Medications - Current Medications Current Medications: Active Medications Acetaminophen (Acetaminophen 325 Mg Tablet) 650 mg PO Q4HR PRN PRN Reason: Pain 1 to 4 Last Admin: 02/27/21 12:53 Dose: 650 mg Documented by: Albuterol (Albuterol 1 Puff) 3 puffs INH Q4HR PRN PRN Reason: Shortness of Air/Wheezing Last Admin: 03/02/21 08:30 Dose: 3 puffs Documented by: Ascorbic Acid (Ascorbic Acid 500 Mg Tablet) 500 mg PO DAILY [facility] Last Admin: 03/05/21 09:09 Dose: 500 mg Documented by: Benzonatate (Benzonatate 100 Mg Capsule) 200 mg PO TID PRN PRN Reason: Cough Last Admin: 03/05/21 23:49 Dose: 200 mg Documented by: Cholecalciferol (Cholecalciferol 5,000 Unit Capsule) 5,000 unit PO DAILY [facility] Last Admin: 03/05/21 09:09 Dose: 5,000 unit Documented by: Dexamethasone (Dexamethasone 4 Mg/Ml Vial) 6 mg IVP DAILY [facility] Last Admin: 03/05/21 09:10 Dose: 6 mg Documented by: Enoxaparin Sodium (Enoxaparin 80 Mg/0.8 Ml Syringe) 80 mg SUBQ BID [facility] Last Admin: 03/05/21 20:42 Dose: 80 mg Documented by: Fluticasone Propionate (Fluticasone Nasal [place]) 1 sprays JOSH DAILY [facility] Last Admin: 03/05/21 09:10 Dose: 1 sprays Documented by: Guaifenesin (Guaifenesin 600 Mg Tablet) 600 mg PO BID [facility] Last Admin: 03/05/21 20:42 Dose: 600 mg Documented by: Guaifenesin (Guaifenesin/Dextromethorphan 10 Ml Udc) 10 ml PO Q6H [facility] Last Admin: 03/06/21 05:52 Dose: 10 ml Documented by: Guaifenesin/Codeine Phosphate (Guaifenesin/Codeine 5 Ml Udc) 5 ml PO Q6HR PRN PRN Reason: Cough Last Admin: 03/05/21 21:55 Dose: 5 ml Documented by: Loratadine (Loratadine 10 Mg Tablet) 10 mg PO DAILY [facility] Last Admin: 03/05/21 09:11 Dose: 10 mg Documented by: Ondansetron HCl (Ondansetron 4 Mg/2 Ml Vial) 4 mg IVP Q6HR PRN PRN Reason: Nausea / Vomiting Phenol/Menthol (Phenol Throat [place] 177 Ml) 2 sprays MM Q2HR PRN PRN Reason: Throat Pain Saccharomyces Boulardii (Saccharomyces Boulardii 250 Mg Capsule) 250 mg PO BIDWM [facility] Last Admin: 03/05/21 17:31 Dose: 250 mg Documented by: Sodium Chloride (Sodium Chloride Flush 0.9% 10 Ml Syringe) 10 ml IVP PRN PRN PRN Reason: NEEDED PER PROVIDER ORDERS Last Admin: 03/06/21 05:52 Dose: 10 ml Documented by: Sodium Chloride (Sodium Chloride Flush 0.9% 10 Ml Syringe) 10 ml IVP 0100,09 00,1700 [facility] Last Admin: 03/05/21 23:49 Dose: 10 ml Documented by: Sodium Chloride (Sodium Chloride Flush 0.9% 10 Ml Syringe) 20 ml IVP PRN PRN PRN Reason: After Blood Draw Last Admin: 03/06/21 05:52 Dose: 20 ml Documented by: Throat Lozenges (Benzocaine/Menthol Lozenge) 1 lozenge MM Q2HR PRN PRN Reason: Throat pain Last Admin: 03/05/21 17:31 Dose: 1 lozenge Documented by: Trazodone HCl (Trazodone 50 Mg Tablet) 50 mg PO QPM [facility] Last Admin: 03/05/21 20:42 Dose: 50 mg Documented by: guaiFENesin/DEXTROMETHORPHAN [Robitussin Dm] 10 ml PO Q6H 02/24/21 Objective - Vital Signs/Intake & Output Reviewed Vital Signs: Yes Vital Signs: Vital Signs x48h Temp Pulse Resp BP Pulse Ox 03/06/21 05:51 36.7 C 91 19 127/85 H 96 03/05/21 23:48 36.8 C 78 23 114/67 98 Intake & Output: Intake & Output 03/03/21 03/04/21 03/05/21 03/06/21 23:59 23:59 23:59 23:59 Intake Total 2142 221 5166 440 Output Total 3 Balance 0905 275 8271 440 - Objective General Appearance: positive: No acute distress, Alert, Other (Constant cough during my exam. Gets a little tearful when she discusses how much she is going to readjust her priorities with this near experience.) Eyes Bilateral: positive: PERRL, EOMI ENT: positive: No signs of dehydration Neck: positive: No JVD, Trachea midline. negative: Stiff neck Respiratory: positive: No respiratory distress, Rales (Today is the best I have heard her. Very faint crackles at both lung bases. Very faint. Great air movement in and out.). negative: Wheezes, Rhonchi Cardiovascular: positive: Regular rate & rhythm, Tachycardia (Occurs with activity. Quickly recovers.). negative: Gallop/S4, Friction rub Abdomen: positive: Non-tender, No organomegaly, Nml bowel sounds, No distention Skin: positive: Warm, Dry Extremities: positive: Non-tender, Full ROM, No pedal edema Neurologic/Psychiatric: positive: Oriented x3, CN's nml (2-12), Motor nml - Lab Results Fish Bones: 03/06/21 05:30 03/06/21 05:30 Other Labs: Lab Results x24hrs 03/06/21 03/06/21 Range/Units 05:30 05:30 WBC 16.7 H (4.8-10.8) x10^3/uL RBC 3.60 L (4.20-5.40) 10^6/uL Hgb 11.2 L (12.0-16.0) g/dL Hct 34.3 L (37.0-47.0) % MCV 95.3 (81.0-99.0) fL MCH 31.1 H (27.0-31.0) pg MCHC 32.7 (32.0-36.0) g/dL RDW 15.3 H (12.0-15.0) % Plt Count 417 (130-450) 10^3/uL MPV 9.5 (7.9-10.8) fL Neut # (Auto) 13.3 H (1.5-6.6) 10^3/uL Lymph # (Auto) 2.1 (1.5-3.5) 10^3/uL [place] # (Auto) 1.0 (0.0-1.0) 10^3/uL Eos # (Auto) 0.0 (0.0-0.7) 10^3/uL Baso # (Auto) 0.0 (0.0-0.1) 10^3/uL Absolute Nucleated RBC 0.00 x10^3/uL Nucleated RBC % 0.0 /100WBC Sodium 136 (135-145) mmol/L Potassium 3.7 (3.5-5.0) mmol/L Chloride 101 (101-111) mmol/L Carbon Dioxide 25 (21-32) mmol/L Anion Gap 10.0 (6-13) BUN 27 H (6-20) mg/dL Creatinine 0.9 (0.4-1.0) mg/dL Estimated GFR (MDRD) 68 L (>89) Glucose 98 (70-100) mg/dL Calcium 8.7 (8.5-10.3) mg/dL ABX Reporting Has patient been on IV antibiotics over the past 48 hours?: No Assessment/Plan - Problem List (1) Pneumonia due to COVID-19 virus Impression: completed 5 days of remdesivir. Completed Decadron day #10 yesterday and stopped today. Completed ceftriaxone day #8 and doxycycline day #7. She was on doxycycline because she is allergic to erythromycin. She continues to require oxygen to maintain O2 sats. But she has not needed BiPAP.Over the last 96 hours O2 requirement finally dropping. She had a D-dimer of 594 on admission and she has been on full dose of Lovenox not so much prophylaxis. Plan: If her O2 drops by 1-2 liters daily hopefully she can go home in next 2-3 days. Still at 2 liters for 2 days. This is wonderful. (2) Acute respiratory failure with hypoxemia Assessment/Plan: Stable. Very good improvement today and down to 4 liters from 6. At her worst she was on 15 liters.
[2021-03-06] MEDS: SACCHAROMYCES BOULARDII 250 MG CAPSULE PO SCH ×2 (08:20→18:08)
[2021-03-06] MEDS: BENZONATATE 100 MG CAPSULE PO PRN ×2 (08:21→18:08)
[2021-03-06] MEDS: guaiFENesin 600 MG TABLET PO SCH ×2 (08:21→21:12)
[2021-03-06] MEDS: ASCORBIC ACID 500 MG TABLET PO SCH (08:21)
[2021-03-06] MEDS: LORATADINE 10 MG TABLET PO SCH (08:22)
[2021-03-06] MEDS: DEXAMETHASONE 4 MG/ML VIAL IVP SCH (08:22)
[2021-03-06] MEDS: CHOLECALCIFEROL 5,000 UNIT CAPSULE PO SCH (08:22)
[2021-03-06] MEDS: SODIUM CHLORIDE FLUSH 0.9% 10 ML SYRINGE IVP SCH ×2 (08:25→18:08)
[2021-03-06] MEDS: ENOXAPARIN 80 MG/0.8 ML SYRINGE SUBQ SCH ×2 (09:20→21:11)
[2021-03-06] MEDS: FLUTICASONE NASAL SPRAY NAS SCH (09:20)
[2021-03-06] MEDS ORDERED: TRIAMCINOLONE 0.1% CREAM 15 GM TUBE TOP SCH (21:00)
[2021-03-06] MEDS: traZODone 50 MG TABLET PO SCH (21:12)
[2021-03-06] MEDS: ZOLPIDEM 5 MG TABLET PO PRN (21:12)
[2021-03-07] MEDS: SODIUM CHLORIDE FLUSH 0.9% 10 ML SYRINGE IVP SCH ×3 (00:32→17:27)
[2021-03-07] MEDS: guaiFENesin/DEXTROMETHORPHAN 10 ML UDC PO SCH ×4 (00:32→17:26)
[2021-03-07 05:31] LABS: BASOPHILS % (AUTO) 0.1 %; EOSINOPHILS % (AUTO) 0.2 %; HGB - HEMOGLOBIN 11.7 g/dL (12.0-16.0); LYMPHOCYTES # (AUTO) 2.1 10^3/uL (1.5-3.5); LYMPHOCYTES % (AUTO) 14.3 %; MEAN CORPUSCULAR HEMOGLOBIN 31.5 pg (27.0-31.0); MEAN CORPUSCULAR HGB CONC 33.4 g/dL (32.0-36.0); MEAN CORPUSCULAR VOLUME 94.1 fL (81.0-99.0); MEAN PLATELET VOLUME 9.5 fL (7.9-10.8); MONOCYTES # (AUTO) 0.8 10^3/uL (0.0-1.0); MONOCYTES % (AUTO) 5.2 %; NEUTROPHILS # (AUTO) 11.7 10^3/uL (1.5-6.6); NEUTROPHILS % (AUTO) 78.5 %; PLT - PLATELET COUNT 447 10^3/uL (130-450); RED BLOOD COUNT 3.72 10^6/uL (4.20-5.40); RED CELL DISTRIBUTION WIDTH 15.4 % (12.0-15.0); WHITE BLOOD COUNT 14.9 x10^3/uL (4.8-10.8)
[2021-03-07 05:35] LABS: CALCIUM 8.5 mg/dL (8.5-10.3); CREATININE 0.8 mg/dL (0.4-1.0); POTASSIUM 3.9 mmol/L (3.5-5.0)
--- NOTE | 2021-03-07 07:19 | PROVIDER PROGRESS NOTE ---
Subjective - Prog Note Date Prog Note Date: 03/07/21 Prog Note Time: 19:09 - Subjective Pt reports feeling: Improved Subjective: showering, but cough, cough, cough. able to eat. Current Medications - Current Medications Current Medications: Active Medications Acetaminophen (Acetaminophen 325 Mg Tablet) 650 mg PO Q4HR PRN PRN Reason: Pain 1 to 4 Last Admin: 02/27/21 12:53 Dose: 650 mg Documented by: Albuterol (Albuterol 1 Puff) 3 puffs INH Q4HR PRN PRN Reason: Shortness of Air/Wheezing Last Admin: 03/02/21 08:30 Dose: 3 puffs Documented by: Ascorbic Acid (Ascorbic Acid 500 Mg Tablet) 500 mg PO DAILY [facility] Last Admin: 03/06/21 08:21 Dose: 500 mg Documented by: Benzonatate (Benzonatate 100 Mg Capsule) 200 mg PO TID PRN PRN Reason: Cough Last Admin: 03/06/21 18:08 Dose: 200 mg Documented by: Cholecalciferol (Cholecalciferol 5,000 Unit Capsule) 5,000 unit PO DAILY [facility] Last Admin: 03/06/21 08:22 Dose: 5,000 unit Documented by: Dexamethasone (Dexamethasone 4 Mg/Ml Vial) 6 mg IVP DAILY [facility] Last Admin: 03/06/21 08:22 Dose: 6 mg Documented by: Enoxaparin Sodium (Enoxaparin 80 Mg/0.8 Ml Syringe) 80 mg SUBQ BID [facility] Last Admin: 03/06/21 21:11 Dose: 80 mg Documented by: Fluticasone Propionate (Fluticasone Nasal [place]) 1 sprays JOSH DAILY [facility] Last Admin: 03/06/21 09:20 Dose: 1 sprays Documented by: Guaifenesin (Guaifenesin 600 Mg Tablet) 600 mg PO BID [facility] Last Admin: 03/06/21 21:12 Dose: 600 mg Documented by: Guaifenesin (Guaifenesin/Dextromethorphan 10 Ml Udc) 10 ml PO Q6H [facility] Last Admin: 03/07/21 06:07 Dose: 10 ml Documented by: Guaifenesin/Codeine Phosphate (Guaifenesin/Codeine 5 Ml Udc) 5 ml PO Q6HR PRN PRN Reason: Cough Last Admin: 03/05/21 21:55 Dose: 5 ml Documented by: Loratadine (Loratadine 10 Mg Tablet) 10 mg PO DAILY [facility] Last Admin: 03/06/21 08:22 Dose: 10 mg Documented by: Ondansetron HCl (Ondansetron 4 Mg/2 Ml Vial) 4 mg IVP Q6HR PRN PRN Reason: Nausea / Vomiting Phenol/Menthol (Phenol Throat [place] 177 Ml) 2 sprays MM Q2HR PRN PRN Reason: Throat Pain Saccharomyces Boulardii (Saccharomyces Boulardii 250 Mg Capsule) 250 mg PO BIDWM [facility] Last Admin: 03/06/21 18:08 Dose: 250 mg Documented by: Sodium Chloride (Sodium Chloride Flush 0.9% 10 Ml Syringe) 10 ml IVP PRN PRN PRN Reason: NEEDED PER PROVIDER ORDERS Last Admin: 03/06/21 05:52 Dose: 10 ml Documented by: Sodium Chloride (Sodium Chloride Flush 0.9% 10 Ml Syringe) 10 ml IVP 0100,0900,1700 [facility] Last Admin: 03/07/21 00:32 Dose: Not Given Documented by: Sodium Chloride (Sodium Chloride Flush 0.9% 10 Ml Syringe) 20 ml IVP PRN PRN PRN Reason: After Blood Draw Last Admin: 03/06/21 05:52 Dose: 20 ml Documented by: Throat Lozenges (Benzocaine/Menthol Lozenge) 1 lozenge MM Q2HR PRN PRN Reason: Throat pain Last Admin: 03/05/21 17:31 Dose: 1 lozenge Documented by: Trazodone HCl (Trazodone 50 Mg Tablet) 50 mg PO QPM [facility] Last Admin: 03/06/21 21:12 Dose: 50 mg Documented by: Triamcinolone Acetonide (Triamcinolone 0.1% Cream 15 Gm Tube) 1 applic TOP BID [facility] Last Admin: 03/06/21 21:11 Dose: 1 applic Documented by: Zolpidem Tartrate (Zolpidem 5 Mg Tablet) 5 mg PO QPM PRN PRN Reason: Insomnia Last Admin: 03/06/21 21:12 Dose: 5 mg Documented by: guaiFENesin/DEXTROMETHORPHAN [Robitussin Dm] 10 ml PO Q6H 02/24/21 Objective - Vital Signs/Intake & Output Reviewed Vital Signs: Yes Vital Signs: Vital Signs x48h Temp Pulse Resp BP Pulse Ox 03/07/21 06:00 36.8 C 91 20 113/74 93 Intake & Output: Intake & Output 03/04/21 03/05/21 03/06/21 03/07/21 23:59 23:59 23:59 23:59 Intake Total 860 1360 1920 240 Balance 860 1360 1920 240 - Objective General Appearance: positive: Alert, Mild distress (from the constant cough) Eyes Bilateral: positive: PERRL, EOMI ENT: positive: No signs of dehydration Respiratory: positive: Rales (faint and only RML), Other (constant cough , non stop when she tries to talk or do anything but no wheezing). negative: Wheezes Cardiovascular: positive: Regular rate & rhythm. negative: Gallop/S4, Friction rub Abdomen: positive: Non-tender, No organomegaly, Nml bowel sounds, No distention Skin: positive: Warm, Dry Extremities: positive: No pedal edema Neurologic/Psychiatric: positive: Oriented x3, CN's nml (2-12), Motor nml - Lab Results Fish Bones: 03/07/21 04:59 03/07/21 04:59 Other Labs: Lab Results x24hrs 03/07/21 03/07/21 Range/Units 04:59 04:59 WBC 14.9 H (4.8-10.8) x10^3/uL RBC 3.72 L (4.20-5.40) 10^6/uL Hgb 11.7 L (12.0-16.0) g/dL Hct 35.0 L (37.0-47.0) % MCV 94.1 (81.0-99.0) fL MCH 31.5 H (27.0-31.0) pg MCHC 33.4 (32.0-36.0) g/dL RDW 15.4 H (12.0-15.0) % Plt Count 447 (130-450) 10^3/uL MPV 9.5 (7.9-10.8) fL Neut # (Auto) 11.7 H (1.5-6.6) 10^3/uL Lymph # (Auto) 2.1 (1.5-3.5) 10^3/uL [place] # (Auto) 0.8 (0.0-1.0) 10^3/uL Eos # (Auto) 0.0 (0.0-0.7) 10^3/uL Baso # (Auto) 0.0 (0.0-0.1) 10^3/uL Absolute Nucleated RBC 0.00 x10^3/uL Nucleated RBC % 0.0 /100WBC Sodium 136 (135-145) mmol/L Potassium 3.9 (3.5-5.0) mmol/L Chloride 100 L (101-111) mmol/L Carbon Dioxide 24 (21-32) mmol/L Anion Gap 12.0 (6-13) BUN 25 H (6-20) mg/dL Creatinine 0.8 (0.4-1.0) mg/dL Estimated GFR (MDRD) 78 L (>89) Glucose 126 H (70-100) mg/dL Calcium 8.5 (8.5-10.3) mg/dL Assessment/Plan - Problem List (1) Leukocytosis Impression: On day 2 through 6 her white cell count dropped to normal. Came back up and then came back down to normal. Since the she is had a steady increase in white cell count. Cough is nonstop. No fever. Hypoxia continues requires 4 L. Her lungs have not budged from that. Plan: Check chest x-ray (2) Pneumonia due to COVID-19 virus Impression: completed 5 days of remdesivir. Completed Decadron day #10 yesterday and stopped today. Completed ceftriaxone day #8 and doxycycline day #7. She was on doxycycline because she is allergic to erythromycin. She continues to require oxygen to maintain O2 sats. But she has not needed BiPAP.Over the last 96 hours O2 requirement finally dropping. She had a D-dimer of 594 on admission and she has been on full dose of Lovenox not so much prophylaxis. Plan: If her O2 drops by 1-2 liters daily hopefully she can go home in next 2-3 days. Still at 4 liters for 2 days. This is wonderful. (3) Acute respiratory failure with hypoxemia Assessment/Plan: Stable. Improvement has slowed down and she is staying at 4 liters. At her worst she was on 15 liters.
[2021-03-07] MEDS: BENZONATATE 100 MG CAPSULE PO PRN (08:08)
[2021-03-07] MEDS: guaiFENesin 600 MG TABLET PO SCH ×2 (08:08→20:54)
[2021-03-07] MEDS: SACCHAROMYCES BOULARDII 250 MG CAPSULE PO SCH ×2 (08:08→17:26)
[2021-03-07] MEDS: ASCORBIC ACID 500 MG TABLET PO SCH (08:08)
[2021-03-07] MEDS: LORATADINE 10 MG TABLET PO SCH (08:08)
[2021-03-07] MEDS: CHOLECALCIFEROL 5,000 UNIT CAPSULE PO SCH (08:08)
--- NOTE | 2021-03-07 08:41 | XRAY Report ---
PROCEDURE: Chest 1 View X-Ray INDICATIONS: Leukocytosis, COVID-19 TECHNIQUE: One view of the chest was acquired. COMPARISON: 03/01/2021 FINDINGS: Surgical changes and devices: None. Lungs and pleura: Mild interval worsening in the appearance of bilateral airspace opacities. No pleur al effusion or pneumothorax. Mediastinum: Mediastinal contours appear normal. Heart size is normal. Bones and chest wall: No suspicious bony lesions. Overlying soft tissues appear unremarkable. IMPRESSION: Mild worsening of the bilateral airspace opacities consistent with infectious pneumonia/pneumonitis, when compared with 03/01/2021. Reviewed by: Bogdan Claire MD on 03/07/2021 8:40 AM PDT Approved by: Bogdan Claire MD on 03/07/2021 8:40 AM PDT Station ID: [id number]
[2021-03-07] MEDS: ENOXAPARIN 80 MG/0.8 ML SYRINGE SUBQ SCH ×2 (09:07→20:54)
[2021-03-07] MEDS: FLUTICASONE NASAL SPRAY NAS SCH (09:08)
[2021-03-07] MEDS: ZOLPIDEM 5 MG TABLET PO PRN (20:54)
[2021-03-07] MEDS: guaiFENesin/CODEINE 5 ML UDC PO PRN (20:54)
[2021-03-07] MEDS ORDERED: MICONAZOLE VAGINAL CREAM 45 GM TUBE VG SCH (21:00)
[2021-03-08] MEDS: guaiFENesin/DEXTROMETHORPHAN 10 ML UDC PO SCH ×3 (00:45→12:37)
[2021-03-08] MEDS: traZODone 50 MG TABLET PO SCH (02:17)
[2021-03-08] MEDS: SODIUM CHLORIDE FLUSH 0.9% 10 ML SYRINGE IVP SCH ×2 (05:19→09:20)
[2021-03-08 05:39] LABS: BASOPHILS % (AUTO) 0.2 %; EOSINOPHILS # (AUTO) 0.2 10^3/uL (0.0-0.7); EOSINOPHILS % (AUTO) 1.5 %; HCT - HEMATOCRIT 35.2 % (37.0-47.0); HGB - HEMOGLOBIN 11.6 g/dL (12.0-16.0); LYMPHOCYTES # (AUTO) 3.2 10^3/uL (1.5-3.5); LYMPHOCYTES % (AUTO) 32.1 %; MEAN CORPUSCULAR HEMOGLOBIN 31.4 pg (27.0-31.0); MEAN CORPUSCULAR VOLUME 95.1 fL (81.0-99.0); MEAN PLATELET VOLUME 9.6 fL (7.9-10.8); MONOCYTES # (AUTO) 0.9 10^3/uL (0.0-1.0); MONOCYTES % (AUTO) 8.8 %; NEUTROPHILS # (AUTO) 5.3 10^3/uL (1.5-6.6); NEUTROPHILS % (AUTO) 53.6 %; PLT - PLATELET COUNT 383 10^3/uL (130-450); RED CELL DISTRIBUTION WIDTH 15.5 % (12.0-15.0); WHITE BLOOD COUNT 9.9 x10^3/uL (4.8-10.8)
[2021-03-08 05:47] LABS: CALCIUM 8.5 mg/dL (8.5-10.3); CREATININE 0.9 mg/dL (0.4-1.0); POTASSIUM 4.3 mmol/L (3.5-5.0)
[2021-03-08] MEDS: SACCHAROMYCES BOULARDII 250 MG CAPSULE PO SCH (09:18)
[2021-03-08] MEDS: LORATADINE 10 MG TABLET PO SCH (09:18)
[2021-03-08] MEDS: guaiFENesin 600 MG TABLET PO SCH (09:19)
[2021-03-08] MEDS: CHOLECALCIFEROL 5,000 UNIT CAPSULE PO SCH (09:19)
[2021-03-08] MEDS: ASCORBIC ACID 500 MG TABLET PO SCH (09:19)
[2021-03-08] MEDS: FLUTICASONE NASAL SPRAY NAS SCH (09:19)
[2021-03-08] MEDS: ENOXAPARIN 80 MG/0.8 ML SYRINGE SUBQ SCH (09:20)
[2021-03-08] MEDS ORDERED: FLUCONAZOLE 100 MG TABLET PO SCH (10:45)
--- NOTE | 2021-03-08 11:41 | Discharge Plan ---
Discharge Plan Problem Reviewed?: Yes Disposition: Home, Self Care Condition: Fair Prescriptions: guaiFENesin/CODEINE [Robitussin AC] 5 ml PO Q6HR PRN #30 ml PRN Reason: Cough Fluconazole [Diflucan] 150 mg PO ONCE #1 tablet Oxygen 2 l JOSH DAILY #1 Diet: Regular Activity Restrictions: Activity as Tolerated (no work until doesn't need oxygen) Shower Restrictions: No Driving Restrictions: Yes (no driving until off oxygen) Health Concerns: You have a tested positive for Covid February 13, 2021. Unvaccinated. And unfortunately your symptoms progressed to the point that you came to the hospital with severe cough, catching your throat, shortness of breath. You were unable to do any activities. This was on February 24. Between February 24 and now you have completed remdesivir, 10 days of Decadron, and preventative therapy for leg blood clots. You were also on doxycycline and Rocephin just in case you were having a secondary pneumonia. You were up to 15 L of oxygen to maintain your oxygen saturations in your body. You have been able to come down to 2 to 4 L. Otherwise you are doing well. Heart, liver, kidneys are working well. It is going to take you several weeks to recover from being so weak and so tired from this pneumonia. Plan of Treatment: 1. You will go home on oxygen. You will be on 4 L nasal cannula when you have to get up and do something such as cook, or take a shower or do any activity. You will go down to 2 L if you are at rest such as watching TV or going to bed. 2. Please get vaccinated in the next 1 to 3 months. While there are still breakthrough infections on vaccinated patients, illness seems to be much less severe and most patients are not even being admitted to the hospital. 3. Please see your primary care provider in follow-up in the next 2 weeks. 4. I will be sending you home on a cough medicine to help you with cough and suppressant. That is Robitussin-AC. Please feel free to take a multivitamin, vitamin D 1000 international units, vitamin C to help with your health. You do not need to take more than 500 mg of vitamin C a day. Care Goals: To resume your normal life with regards to working. Be off oxygen. And not be tired. Assessment: Patient understands care goals, would like to go home, and will follow through on instructions No Smoking: If you smoke, Please STOP! Call for help.
--- NOTE | 2021-03-08 11:49 | DISCHARGE SUMMARY ---
"Discharge Summary Admit Date: 02/24/21 Discharge Date: 03/08/21 Discharging Provider: Taniya Gama MD Primary Care Provider: Vega Estevez MD Code Status: Attempt Resuscitation Condition at Discharge: Fair Discharge Disposition: 01 Home, Self Care - DIAGNOSES Admission Diagnoses: 1. Acute respiratory failure with hypoxia 2. COVID-19 pneumonia 3. Leukocytosis 4. History of asthma 5. History of hypertension - HPI History of Present Illness: Patient is a 45-year-old female with no significant medical history who presents to the ED with dyspnea, cough and hypoxia. She has been having viral symptoms like headache, overall feeling sick and a cough since February 13, 2021. She had a home Covid test which was positive. She has been to the emergency department 3 times since onset of her symptoms. On 20 February she received a monoclonal antibody infusion. She finally came in today because her home pulse oximetry has been in the low to mid 80s. In the ED she was noted to be 88% on room air. She required 3 L of oxygen via nasal cannula while at rest and 4 L with activity to keep her oxygen saturation in the 90s. She was also noted to have a WBC of 13.7 and a chest x-ray was indicated of viral and or atypical pneumonia. As a result she was presented for admission for further treatment. She denies chest pain, abdominal pain, nausea, vomiting, fever or chills. - Past Medical History Cardiovascular: reports: Hypertension Respiratory: reports: Asthma Neuro: reports: None Endocrine/Autoimmune: reports: None GI: reports: None LINING STAMPER: reports: Endometriosis : reports: None HEENT: reports: None Psych: reports: None Musculoskeletal: reports: None Derm: reports: None MRSA Hx?: Yes - Past Surgical History /LINING STAMPER: reports: section, Endometrial ablation, Tubal ligation - CONSULTS | PROCEDURES Procedures: 1. Multiple chest x-rays done during her stay. She has bilateral airspace opacities consistent with infectious pneumonia/pneumonitis. No real improvement by the time of discharge. 2. Blood cultures are negative at 5 days 3. Venous duplex studies of the lower extremity are unremarkable with no evidence of DVT. - HOSPITAL COURSE Hospital Course: She was placed on empiric antibiotic therapy to make sure there is no secondary bacterial pneumonia. Because she is allergic to erythromycin, doxycycline was substituted. She completed doxycycline and Rocephin therapy for 7 days. She completed 10 days of Decadron and she completed 5 days of remdesivir. At one point she was up to 15 L Oxymizer. She was placed in ICU for precaution. She is a full code and we were prepared to intubate her. However, she did not need anything further than Oxymizer. Nebulizers. Completed all of her therapies and has been stable at 2 L nasal cannula at rest. However with easy activity she desaturates. By the time of discharge she is ambulating in her room, taking a shower, dressing herself, and getting in and out of bed without assist. She is hypoxic on room air with O2 sats of 88%. With 2 L nasal cannula at rest her O2 sats improved to 92%. With ambulation on 2 L/min her oxygen saturations dropped to 90%. As such she is stable enough to go home on 03/02 nasal cannula 2 L/min. I am sending her home with [facility]. She complains of yeast vaginitis. She received 1 dose of Diflucan on the day of discharge after 2 days of miconazole cream. She will receive another dose of Diflucan 3 days from now. On examination she is 5 foot 3, weighs 84.3 kg. She is a fatigued appearing white female who looks stated age. Its been a long stay in the hospital for her and there has been a roller coaster of emotions. She is very happy to be going home but still very easily fatigued with minimal activity. She has constant nonstop dry coughing. She is able to prone herself to improve her oxygen saturations. Temperature is 36.6. Pulse is 88. Blood pressure 131/74. Respirations 22. 95% saturated on 2 L at rest. Neck is supple. Shotty adenopathy. Lungs still has very faint right midlung crackles. But overall this is much improved from when I first met her. When I first met her she had bilateral crackles throughout all lung higuera, with rhonchi in the right midlung field. She does not have any increased use of accessory respiratory muscles. She is comfortable in bed, watching TV or sleeping. Regular rate and rhythm without any murmurs rubs or gallops. Abdomen is soft, nontender. Appetite has been poor but she has been making herself eat. Extremities are without clubbing cyanosis or edema. She is alert and oriented x3. Has no focal deficits. Generalized fatigue. But not eating any assist for self-care. Greater than 30 minutes was spent coordinating discharge. I am having her see her primary care provider, Dr. Vega Estevez in follow-up in the next 1 to 2 weeks. I am asking her to take a multivitamin, vitamin C, and vitamin D. We are also asking her to get vaccinated in the next 2 to 3 months. - ALLERGIES Allergies/Adverse Reactions: Allergies Allergy/AdvReac Type Severity Reaction Status Date / Time erythromycin base Allergy Intermediate hives/chest Verified 02/24/21 15:26 [Erythromycin Base] pain Penicillins Allergy Mild Hives Verified 02/24/21 15:26 - MEDICATIONS Home Medications: Ambulatory Orders Medication Instructions Recorded Confirmed Benzonatate [Tessalon] 200 mg PO TID PRN #20 02/18/21 02/24/21 Albuterol Sulf [Ventolin Hfa 3 - 4 puffs INH Q4HR PRN #1 inhaler 02/20/2102/11 Inhaler] guaiFENesin/DEXTROMETHORPHAN 10 ml PO Q6H 02/24/21 02/24/21 [Robitussin Dm] Fluconazole [Diflucan] 150 mg PO ONCE #1 tablet 03/08/21 Oxygen 2 l JOSH DAILY #1 03/08/21 guaiFENesin/CODEINE [Robitussin AC] 5 ml PO Q6HR PRN #30 ml 03/08/21 - LABS Result Diagrams: 03/08/21 05:20 03/08/21 05:20"
[2021-03-08 13:22] VITALS: BP 96/70
== END 2021-03-08 14:40 | disposition home or self-care (01) | DRG 177 ==
LOC: ED 14:39 → ICU 19:07
PROVIDERS: ADMIT Internal Medicine; ATTEND Specialist
PROC: XW033E5 Introduction of Remdesivir Anti-infective into Peripheral Vein, Percutaneous Approach, New Technology Group 5 (ICD-10-PCS; principal; 2021-02-25)
PROC: 3E0333Z Introduction of Anti-inflammatory into Peripheral Vein, Percutaneous Approach (ICD-10-PCS; 2021-02-25)
PROC: 02HV33Z Insertion of Infusion Device into Superior Vena Cava, Percutaneous Approach (ICD-10-PCS; 2021-02-27)
DX: U07.1 COVID-19 (principal); J12.82 Pneumonia due to coronavirus disease 2019; J96.01 Acute respiratory failure with hypoxia; J18.9 Pneumonia, unspecified organism; J45.909 Unspecified asthma, uncomplicated; D72.829 Elevated white blood cell count, unspecified; B37.3 Candidiasis of vulva and vagina
CPT/HCPCS: 36415; 71045; 80048; 80053; 80076; 83735; 84100; 84703; 85025; 85379; 87040; 87150; 93005; 93970; 94640; 94761; 96365; 96366; 96368; 96372; 96375; 99285; A9270; C1751; C9399; J1650

== ENCOUNTER 2021-11-19 18:55 | Outpatient (CLI) | payer MEDICAID | END 2021-11-19 23:59 | disposition home or self-care (01) | LOC: LAB 18:55 | PROVIDERS: ATTEND Physician Assistant Medical | DX: U07.1 COVID-19 (principal) ==

== ENCOUNTER 2022-03-27 18:13 | Outpatient (CLI) | payer MEDICAID ==
--- NOTE | 2022-03-28 09:05 | XRAY Report ---
PROCEDURE: Knee Standing AP View Only INDICATIONS: L KNEE PX TECHNIQUE: AP standing view of left knee COMPARISON: None. FINDINGS: Bones: No acute fractures or dislocations. No suspicious bony lesions. Mild medial femoral tibial c ompartment joint space narrowing and subchondral sclerosis is seen. Soft tissues: No suspicious soft tissue calcification. IMPRESSION: Mild medial femoral tibial compartment osteoarthritis. No fracture or dislocation. No gross soft tiss ue abnormalities. Reviewed by: Sen Quinones MD on 03/28/2022 9:04 AM PDT Approved by: Sen Quinones MD on 03/28/2022 9:04 AM PDT Station ID: [id number]
== END 2022-03-27 18:14 | disposition home or self-care (01) ==
LOC: DI.N 18:13
PROVIDERS: ATTEND Family Medicine
DX: M17.12 Unilateral primary osteoarthritis, left knee (principal)

== ENCOUNTER 2022-04-22 08:00 | Outpatient (CLI) | payer MEDICAID ==
--- NOTE | 2022-04-22 12:08 | XRAY Report ---
PROCEDURE: Knee 4 View LT INDICATIONS: LEFT KNEE PAIN TECHNIQUE: 4 views of the left knee(s) were acquired. COMPARISON: 03/27/2022 and 09/18/2014. FINDINGS: Bones: No fractures or dislocations. Mild medial femoral tibial compartment joint space narrowing a nd subchondral sclerosis is seen. No suspicious bony lesions. Soft tissues: No joint effusion. No suspicious soft tissue calcifications. IMPRESSION: Suggestion of very mild medial femoral tibial compartment osteoarthritis in left knee. N o fracture or dislocation. No significant joint effusion. Reviewed by: Sen Quinones MD on 04/22/2022 12:07 PM PDT Approved by: Sen Quinones MD on 04/22/2022 12:07 PM PDT Station ID: [id number]
== END 2022-04-22 23:59 | disposition home or self-care (01) ==
LOC: DI.WOS 08:00
PROVIDERS: ATTEND Physician Assistant Surgical
DX: M17.12 Unilateral primary osteoarthritis, left knee (principal)

== ENCOUNTER 2022-05-09 13:52 | Outpatient (CLI) | payer MEDICAID ==
--- NOTE | 2022-05-09 16:18 | MRI Report ---
PROCEDURE: KNEE WO - LT INDICATIONS: PAIN IN LEFT KNEE TECHNIQUE: Noncontrast sagittal PD fast spin echo and T2 fast spin echo with fat saturation, sagittal 3-D gradie nt sequence with fat saturation; coronal T1 spin echo and PD fast spin echo with fat saturation, and axial PD fast spin echo with fat saturation through the knee. COMPARISON: Left knee radiograph dated 04/22/2022 and 03/27/2022. FINDINGS: Image quality: Excellent. Menisci: Oblique tear involving posterior horn of medial meniscus is seen best seen on series 5 image 24 and extending to inferior articulating surface. Lateral meniscus is intact. The meniscal root lig aments appear intact. Cruciate ligaments: There is suggestion of low to moderate grade partial thickness tear involving pro ximal anterior cruciate ligament near its femoral insertion. No full-thickness ACL rupture. PCL is in tact. Medial structures: The medial collateral ligament appears intact. The posterior oblique ligament, s emimembranosus tendon insertions, and oblique popliteal ligament, and meniscocapsular junction appear intact. Visualized portions of the pes anserinus tendons appear normal. No abnormal bursal fluid. Lateral structures: The lateral collateral ligament, long and short heads of the biceps femoris tend on appear intact. The popliteus tendon appears normal; the popliteofibular ligament appears intact. Iliotibial band appears normal. Anterior structures: The quadriceps and patellar tendons appear intact. Patellar alignment is alok l. No femoral trochlear dysplasia or ventral trochlear prominence. No edema in the infrapatellar fa t pad. Bones and cartilage: No bone marrow contusions or fractures. Low-grade chondromalacia in medial femo ral tibial compartment and patellofemoral compartment is seen. Joint space: There is small knee joint fluid. No Hernandez's cyst. Normal appearing synovial plicae ar e incidentally noted. IMPRESSION: 1. Oblique tear involving posterior horn of medial meniscus extending to inferior articulating surfac e. No focal lateral meniscal tear. 2. Suggestion of sprain/low to moderate grade partial thickness tear involving proximal anterior cruc iate ligament near its femoral insertion. No full-thickness ACL rupture. PCL is intact. 3. Low-grade chondromalacia in medial femoral tibial compartment and patellofemoral compartment. No f racture or dislocation. No marrow edema. Small joint effusion, no gross loose bodies. Reviewed by: Sen Quinones MD on 05/09/2022 4:17 PM PDT Approved by: Sen Quinones MD on 05/09/2022 4:17 PM PDT Station ID: [id number]
== END 2022-05-09 13:53 | disposition home or self-care (01) ==
LOC: DI 13:52
PROVIDERS: ATTEND Physician Assistant Surgical
DX: S83.242A Other tear of medial meniscus, current injury, left knee, initial encounter (principal); S83.512A Sprain of anterior cruciate ligament of left knee, initial encounter; M22.42 Chondromalacia patellae, left knee; M25.462 Effusion, left knee

== ENCOUNTER 2022-07-24 09:21 | Outpatient (CLI) | payer MEDICAID ==
--- NOTE | 2022-08-02 11:08 | Mammography Report ---
BILATERAL DIGITAL SCREENING MAMMOGRAM 3D/2D: 07/24/2022 CLINICAL: Routine screening. Comparison is made to exam dated: 03/11/2017 mammogram - [facility]. Both breasts are heterogeneously dense, which may obscure small masses (category c / 51-75% glandular tissue). No significant masses, calcifications, or other findings are seen in either breast. There has been no significant interval change. IMPRESSION: NEGATIVE There is no mammographic evidence of malignancy. A 1 year screening mammogram is recommended. This exam was interpreted at Station ID: [id number]. NOTE: For mammograms, a report in lay terms will be sent to the patient. Approximately 15% of breast malignancies will not be visualized mammographically. In the management of a palpable breast mass, a negative mammogram must not discourage biopsy of a clinically suspicious lesion. Electronically Signed By: Bogdan Claire M.D., jr/roxy:08/02/2022 08:29:57 ACR BI-RADS Category 1: Negative 3341F PARENCHYMAL PATTERN: (D) - The breast(s) demonstrate(s) heterogeneously dense fibroglandular shirley keith. BI-RADS CATEGORY: (1) - 1 RECOMMENDATION: (ANNUAL) - Recommend routine annual screening mammography. [id number] 1 year screening LATERALITY: (B)
== END 2022-07-24 09:22 | disposition home or self-care (01) ==
LOC: DI.N 09:21
PROVIDERS: ATTEND Nurse Practitioner Family
DX: Z12.31 Encounter for screening mammogram for malignant neoplasm of breast (principal)

== ENCOUNTER 2022-07-24 09:47 | Outpatient (CLI) | payer MEDICAID ==
[2022-07-24 12:10] LABS: BASOPHILS % (AUTO) 0.5 %; EOSINOPHILS # (AUTO) 0.1 10^3/uL (0.0-0.7); EOSINOPHILS % (AUTO) 0.9 %; HCT - HEMATOCRIT 39.8 % (37.0-47.0); HGB - HEMOGLOBIN 12.9 g/dL (12.0-16.0); LYMPHOCYTES # (AUTO) 1.7 10^3/uL (1.5-3.5); LYMPHOCYTES % (AUTO) 22.9 %; MEAN CORPUSCULAR HEMOGLOBIN 31.7 pg (27.0-31.0); MEAN CORPUSCULAR HGB CONC 32.4 g/dL (32.0-36.0); MEAN CORPUSCULAR VOLUME 97.8 fL (81.0-99.0); MEAN PLATELET VOLUME 10.5 fL (7.9-10.8); MONOCYTES # (AUTO) 0.5 10^3/uL (0.0-1.0); MONOCYTES % (AUTO) 6.8 %; NEUTROPHILS # (AUTO) 5.1 10^3/uL (1.5-6.6); NEUTROPHILS % (AUTO) 68.8 %; PLT - PLATELET COUNT 303 10^3/uL (130-450); RED BLOOD COUNT 4.07 10^6/uL (4.20-5.40); RED CELL DISTRIBUTION WIDTH 14.5 % (12.0-15.0); WHITE BLOOD COUNT 7.5 x10^3/uL (4.8-10.8)
[2022-07-24 12:35] LABS: ALKALINE PHOSPHATASE 62 IU/L (42-121); ALT ALANINE AMINOTRANSFERASE 21 IU/L (10-60); AST ASPARTATE AMINOTRANSFERASE 22 IU/L (10-42); BILIRUBIN,TOTAL 0.6 mg/dL (0.2-1.0); BUN - BLOOD UREA NITROGEN 15 mg/dL (6-20); CALCIUM 9.6 mg/dL (8.5-10.3); CARBON DIOXIDE - CO2 25 mmol/L (21-32); CHLORIDE 106 mmol/L (101-111); CHOL/HDL RATIO 3.6 (<4.4); CHOLESTEROL 267 mg/dL; GFR - MDRD 60 (>89); GLUCOSE 91 mg/dL (70-100); HDL CHOLESTEROL 75 mg/dL; LDL CHOLESTEROL,CALCULATED 178 mg/dL; LDL/HDL RATIO 2.4 (<4.4); POTASSIUM 4.3 mmol/L (3.5-5.0); SODIUM 136 mmol/L (135-145); TOTAL PROTEIN 7.9 g/dL (6.7-8.2); TRIGLYCERIDES 69 mg/dL; VLDL CHOLESTEROL 14 mg/dL
[2022-07-24 13:02] LABS: ESTIMATED AVERAGE GLUCOSE 100 mg/dL (70-100); HEMOGLOBIN A1c% 5.1 % (4.27-6.07)
== END 2022-07-24 09:48 | disposition home or self-care (01) ==
LOC: LAB.N 09:47
PROVIDERS: ATTEND Nurse Practitioner Family
DX: Z00.01 Encounter for general adult medical examination with abnormal findings (principal); E66.9 Obesity, unspecified; Z13.220 Encounter for screening for lipoid disorders; Z13.1 Encounter for screening for diabetes mellitus
CPT/HCPCS: 36415; 80050; 80061; 83036; 83721

== ENCOUNTER 2022-09-23 16:10 | Outpatient (CLI) | payer MEDICAID ==
[2022-09-25 13:33] LABS: INFLUENZA A- RESP PCR PANEL NOT DETECTED; INFLUENZA B - RESP PCR PANEL NOT DETECTED; RSV- RESP PCR PANEL NOT DETECTED; SARS-CoV-2 -RESP PCR PANEL NOT DETECTED
== END 2022-09-23 23:59 | disposition home or self-care (01) ==
LOC: LAB.R 16:10
PROVIDERS: ATTEND Nurse Practitioner
DX: J06.9 Acute upper respiratory infection, unspecified (principal); Z20.822 Contact with and (suspected) exposure to COVID-19
CPT/HCPCS: 87637

== ENCOUNTER 2023-11-18 10:41 | Outpatient (CLI) | payer MEDICAID ==
[2023-11-18 17:48] LABS: BASOPHILS % (AUTO) 0.5 %; EOSINOPHILS # (AUTO) 0.1 10^3/uL (0.0-0.7); HGB - HEMOGLOBIN 12.8 g/dL (12.0-16.0); LYMPHOCYTES # (AUTO) 1.9 10^3/uL (1.5-3.5); LYMPHOCYTES % (AUTO) 30.1 %; MEAN CORPUSCULAR HEMOGLOBIN 30.8 pg (27.0-31.0); MEAN CORPUSCULAR VOLUME 96.4 fL (81.0-99.0); MEAN PLATELET VOLUME 11.2 fL (7.9-10.8); MONOCYTES # (AUTO) 0.5 10^3/uL (0.0-1.0); MONOCYTES % (AUTO) 8.1 %; NEUTROPHILS # (AUTO) 3.8 10^3/uL (1.5-6.6); NEUTROPHILS % (AUTO) 59.1 %; PLT - PLATELET COUNT 338 10^3/uL (130-450); RED BLOOD COUNT 4.15 10^6/uL (4.20-5.40); RED CELL DISTRIBUTION WIDTH 15.1 % (12.0-15.0); WHITE BLOOD COUNT 6.4 x10^3/uL (4.8-10.8)
[2023-11-18 18:14] LABS: THYROID STIMULATING HORMONE 1.49 uIU/mL (0.34-5.60)
[2023-11-18 18:28] LABS: ALBUMIN/GLOBULIN RATIO 1.1 (1.0-2.2); ALKALINE PHOSPHATASE 151 IU/L (42-121); ALT ALANINE AMINOTRANSFERASE 49 IU/L (10-60); AST ASPARTATE AMINOTRANSFERASE 40 IU/L (10-42); BILIRUBIN,TOTAL 0.5 mg/dL (0.2-1.0); BUN - BLOOD UREA NITROGEN 22 mg/dL (6-20); CALCIUM 9.7 mg/dL (8.5-10.3); CARBON DIOXIDE - CO2 24 mmol/L (21-32); CHLORIDE 104 mmol/L (101-111); CHOLESTEROL 253 mg/dL; CREATININE 0.8 mg/dL (0.6-1.3); GFR - MDRD 77 (>89); GLUCOSE 76 mg/dL (74-104); HDL CHOLESTEROL 64 mg/dL; LDL CHOLESTEROL,CALCULATED 171 mg/dL; LDL/HDL RATIO 2.7 (<4.4); POTASSIUM 4.2 mmol/L (3.5-4.5); SODIUM 135 mmol/L (135-145); TOTAL PROTEIN 7.6 g/dL (6.4-8.9); TRIGLYCERIDES 91 mg/dL (48-352); VLDL CHOLESTEROL 18 mg/dL
[2023-11-18 20:25] LABS: ESTIMATED AVERAGE GLUCOSE 105 mg/dL (70-100); HEMOGLOBIN A1c% 5.3 % (4.27-6.07)
== END 2023-11-18 10:42 | disposition home or self-care (01) ==
LOC: LAB.N 10:41
PROVIDERS: ATTEND Nurse Practitioner Family
DX: I10 Essential (primary) hypertension (principal); R53.83 Other fatigue; R40.0 Somnolence; E66.01 Morbid (severe) obesity due to excess calories; Z68.41 Body mass index [BMI] 40.0-44.9, adult
CPT/HCPCS: 36415; 80050; 80061; 83036; 83721

== ENCOUNTER 2024-01-19 16:28 | Outpatient (CLI) | payer MEDICAID ==
--- NOTE | 2024-01-20 08:12 | SLEEP CARE CONSULTATION ---
Information from patient questionnaire entered by Mark Ball. I have reviewed and concur with the information entered by Mark Ball. This document represents the service I personally performed and the decisions made by me, Darian Alejo MD, [facility]. History of Present Illness Service Date and Time: 01/19/2024 1628 Reason for Visit: New patient Chief Complaint: reports: Excessive daytime sleepiness, Fatigue Date of Onset: 9-10MONTHS Usual bedtime: 5559-9303 Time it takes to fall asleep: 10MINS Snores at night: Yes Observed to quit breathing while asleep: No Number of times waking at night: 1-2 Reasons for waking at night: reports: Pain, Bathroom Toss, Turn, or Twitch while sleeping: Yes Recalls having dreams: Yes Usually gets out of bed at: 2062-5190 Morning headache: Yes Sleepy or fatigued during the day: Yes Takes day naps: Yes Dreams during day naps: No Prior sleep studies: No Additional HPI information: I have the pleasure of seeing Ms. Carcamo today regarding the possibility of her having obstructive sleep apnea. As you know, she is a 48-year-old lady who complains of persistent fatigue and excessive daytime sleepiness. She has a recent weight gain of about 50 lbs. The patient tells me that she normally goes to bed around 11 pm - midnight, and it takes her approximately 10 minutes to fall asleep. She has been told that she snores loudly and irregularly at night. She has never been observed to stop breathing in her sleep. However, she sleeps alone. She can recall waking up on the average of 1 - 2 times during the night. Most of the time she wakes up because of having to use the bathroom and pain. She has never awakened because of her own snoring, choking, or having to gasp for air. There is not a lot of tossing and turning in her sleep. No somniloquy (sleep talking) or somnambulism (sleep walking). Generally, she can recall having dreams. In the morning she usually gets up out of the bed around 7 - 8 a.m. not feeling refreshed nor rested. She usually has a morning headache that goes away quickly once she starts moving around. During the day she complains of feeling sleepy and fatigued. Her score on [place] Sleepiness Scale is 11 out of 24. She never has fallen asleep while driving nor has had any accident due to sleepiness. She usually takes naps during the day. Upon falling asleep during the day she denies having vivid dreams. She has never had sleep paralysis, experienced cataplexy or symptoms of restless leg syndrome. She reports having impaired concentration during the day. 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 Patient is and lives in [place]. Have you smoked in the past 12 months: No Alcohol use: Yes Alcohol amount and frequency: 2-3 1 TIME A WEEK Caffeine use: Yes Caffeine amount and frequency: 1 DAILY Family History Family history of sleep disordered breathing: No Allergies and Home Medications Known drug allergies: Yes Drug allergies reviewed: Yes Home medication list reviewed: Yes Allergy and home medication list: Allergies erythromycin base [Erythromycin Base] Allergy (Intermediate, Verified 01/13/24 08:23) hives/chest pain Penicillins Allergy (Mild, Verified 01/13/24 08:23) Hives Review of Systems Weight gain over past 5 years: 60 Cardiovascular: reports: high blood pressure Respiratory: reports: chronic cough Gastrointestinal: reports: heartburn Neurological: reports: headaches Psychiatric: denies: Attention Deficit Hyperactivity, anxiety, depression, mood disorder, claustrophobia, other Ear/Nose/Throat: reports: nasal congestion, sinus problems, wisdom teeth removed Endocrine: denies: thyroid disease, history of goiter, sluggishness, too hot or cold, excessive thirst, increased appetite, increased urination, unexplained weakness, other Musculoskeletal: reports: joint pain, neck pain, back pain, muscle pain or cramping Immunologic: reports: sneezing, allergies to food or environment Physical Exam Vital signs obtained and entered by: MARK Romero MA Blood Pressure: 156/82 (RIGHT ARM) Cuff size: long Heart Rate: 78 O2 Saturation: 100 Height: 5 ft 2.25 in Weight: 241 lb 12.8 oz Body Mass Index: 43.8 BMI Classification: Morbidly Obese Neck circumference: 15 Mood/affect: Normal HEENT: No craniofacial malformation Nostrils: patent to airflow Turbinates: normal Septum: midline Mouth and throat: normal Soft palate: normal Hard palate: normal Uvula: normal Uvula visualization: 100% Mallampati Class I Tongue: normal in size Tonsils: small Chin and jaw: normal size and position Neck: normal w/o lymphadenopathy or thyromegaly Heart: regular rate and rhythm Lungs: clear bilaterally Extremities: no edema or clubbing Neurologic: intact Impression and Plan IMPRESSION: 1. Obstructive Sleep Apnea-Hypopnea Syndrome, as evident by history of loud and irregular snoring, unrefreshed sleep, morning headache, cognitive impairment, and daytime hypersomnolence. Obesity is a common predisposing factor for obstructive sleep apnea-hypopnea syndrome. Untreated obstructive sleep apnea can also cause hypertension. I recommend proceeding to polysomnography to confirm the diagnosis and to assess severity. I informed the patient of what the sleep studies involve and after some discussion, she agreed to proceed. Plan: 1. Schedule polysomnography and return in 1 to 2 weeks after the study to discuss result and initiate therapy. 2. Avoid long distance driving or when feeling sleepy. 3. Avoid alcohol, sedative and muscle relaxant around bedtime. 4. Attempt to lose weight. Follow up with Sleep Care in: 1-2 months Visit Type: In Office Time Spent with Patient (minutes): 15 Provider Statement: I spent 100% of the Face to Face Visit with the patient with greater than 50% spent counseling the patient and coordination of care.
[2024-01-20 08:17] VITALS: BP 156/82; O2SAT 100
== END 2024-01-19 16:29 | disposition home or self-care (01) ==
LOC: SC 16:28
PROVIDERS: ATTEND Internal Medicine Pulmonary Disease
DX: G47.10 Hypersomnia, unspecified (principal); R53.83 Other fatigue; R06.83 Snoring; E66.01 Morbid (severe) obesity due to excess calories; Z68.41 Body mass index [BMI] 40.0-44.9, adult; R51.9 Headache, unspecified; R41.89 Other symptoms and signs involving cognitive functions and awareness; G47.8 Other sleep disorders; I10 Essential (primary) hypertension
CPT/HCPCS: 99202; 99212

== ENCOUNTER 2024-03-30 21:54 | Emergency (ER) | payer MEDICAID ==
--- NOTE | 2024-03-30 22:10 | ED Physician Documentation ---
PD HPI LOWER EXT INJURY - Stated complaint Stated Complaint: L KNEE PX - Chief complaint Chief Complaint: Trauma Ext - History obtained from History obtained from: Patient - History of Present Illness PD HPI LOW EXT INJURY LOCATION: Left, Knee Type of injury: Fall, Twist (took step down forcefully onto right foot and then fell and twisted as tried to recover left foot. Had twisting of left knee and it ended up behind her. Pain with walking but no locking nor giving out. Has had increasing pain through work day. More swelling this evening.) Timing - onset: Last night Worsened by: Moving Associated symptoms: Swelling, Other (no clicking, popping, nor giving out.). No: Weakness, Numbness PD PAST MEDICAL HISTORY - Past Medical History Past Medical History: Yes Cardiovascular: Hypertension Respiratory: Asthma Neuro: None Endocrine/Autoimmune: None GI: None MANAGER CONTRACTING: Endometriosis : None HEENT: None Psych: None Musculoskeletal: None Derm: None - Past Surgical History Past Surgical History: Yes /MANAGER CONTRACTING: section, Endometrial ablation, Tubal ligation - Present Medications Home Medications: Ambulatory Orders Medication Instructions Recorded Confirmed Benzonatate [Tessalon] 200 mg PO TID PRN #20 02/18/21 02/24/21 Albuterol Sulf [Ventolin Hfa 3 - 4 puffs INH Q4HR PRN #1 inhaler 02/20/21 02/24/21 Inhaler] guaiFENesin/DEXTROMETHORPHAN 10 ml PO Q6H 02/24/21 02/24/21 [Robitussin Dm] Fluconazole [Diflucan] 150 mg PO ONCE #1 tablet 03/08/21 Oxygen 2 l JOSH DAILY #1 03/08/21 guaiFENesin/CODEINE [Robitussin AC] 5 ml PO Q6HR PRN #30 ml 03/08/21 - Allergies Allergies/Adverse Reactions: Allergies Allergy/AdvReac Type Severity Reaction Status Date / Time erythromycin base Allergy Intermediate hives/chest Verified 03/30/24 21:57 [Erythromycin Base] pain Penicillins Allergy Mild Hives Verified 03/30/24 21:57 - Social History Does the pt smoke?: No Smoking Status: Never smoker Does the pt drink ETOH?: Yes Does the pt have substance abuse?: No - Immunizations Immunizations are current?: Yes Immunizations: No immun - POLST Patient has POLST: No POLST Status: Full Code PD ED PE NORMAL - Vitals Vital signs reviewed: Yes - Derm Derm: Normal color, Warm and dry - Extremities Extremities: Other (left knee with moderate effusion. No laxity nor pain with cruciate nor collateral testing. Apley without clicking, grinding and not too much pain actually. Tender alos lateral knee and inferior. ) - Neuro Neuro: Alert and oriented X 3, No motor deficit, No sensory deficit Results - Vitals Vitals: Oxygen O2 Source Room air - Rads (name of study) knee xray Relevant Findings:: Prelim report reviewed, EMP independent interpretation of test (some effusion. No fractures. ) PD Medical Decision Making - ED course Complexity details: reviewed results (no fracture, effusion noted. ), re- evaluated patient (She had had prior meniscal injury and has knee brace at home. She can start using it. Does not hurt enough to her for needing crutches. Meds given for inflammation and pain. ), considered differential (knee injury step down and twist, but mostly twisting for that knee. Cruciates and collaterals actually feel sturdy and not hurting. Moderate knee effusion. No clicking nor grinding. Xray without fracture. Likely meniscal contusion though some pain at lateral knee tendons.), d/w patient Departure - Departure Disposition: 01 Home, Self Care Clinical Impression: Acute injury of left knee cartilage Condition: Stable Record reviewed to determine appropriate education?: Yes Instructions: ED Meniscal Injury Knee Poss Follow-Up: Sussy Tai ARNP [Primary Care Provider] - Comments: The x-ray does not show any fractures. There is some fluid in the joint which is clinically apparent as well. The exam seems to have stable cruciate and collateral ligaments and is not causing your pain. There is fluid in the joint in my impression is likely to be some bruising or partial tear of the meniscus. The pain and tightness right now is coming from the swelling in the joint. Elevate rest ice etc. to help reduce swelling and there. I would suggest using your knee brace that you have from your prior meniscal injury. Use it when up and around over the next several days to a week to help support and reduce pivotal motion in the knee. You can have it off when resting. Ibuprofen or naproxen type anti-inflammatories to 3 times daily. Add Tylenol every 4-6 hours if needed for pain. It should improve as the swelling goes down over the next few days. However it may be a few weeks on healing if there was a reinjury of the cartilage/meniscus. Follow-up with the orthopedist if needed. This would be if it is not steadily improving and resolved over the next 7 to 10 days or so. Activity as tolerated. Forms: PCP List Discharge Date/Time: 03/30/24 23:27
--- NOTE | 2024-03-30 23:03 | XRAY Report ---
PROCEDURE: Knee 4+V LT INDICATIONS: fall with knee impact/twist TECHNIQUE: 4 views of the knee(s) were acquired. COMPARISON: 04/22/2022 FINDINGS: Bones: Mild medial compartment joint space narrowing. No acute displaced fracture. No dislocation. Soft tissues: Small joint effusion. IMPRESSION: Small joint effusion without acute displaced fracture or dislocation If there is high concern for further derangement, consider MRI evaluation. Reviewed by: Cristino Velasco MD on 03/30/2024 11:02 PM PDT Approved by: Cristino Velasco MD on 03/30/2024 11:02 PM PDT Station ID: [id number]
[2024-03-30 23:30] VITALS: BP 133/68; O2SAT 98
== END 2024-03-30 23:27 | disposition home or self-care (01) ==
LOC: ED 21:54
DX: S89.92XA Unspecified injury of left lower leg, initial encounter (principal); W19.XXXA Unspecified fall, initial encounter; I10 Essential (primary) hypertension; Z79.899 Other long term (current) drug therapy
CPT/HCPCS: 99283; 99284

== ENCOUNTER 2024-04-01 09:01 | Outpatient (CLI) | payer MEDICAID | END 2024-04-01 09:02 | disposition home or self-care (01) | LOC: SC 09:01 | PROVIDERS: ATTEND Internal Medicine Pulmonary Disease | DX: G47.33 Obstructive sleep apnea (adult) (pediatric) (principal); R09.02 Hypoxemia; E66.9 Obesity, unspecified; Z68.41 Body mass index [BMI] 40.0-44.9, adult | CPT/HCPCS: 95806 ==